=== PATIENT | female | born 2000 | race Caucasian/White ===

== ENCOUNTER 2023-05-27 12:30 | Outpatient (OUT) | payer OTHER, BC, SELFPAY ==
[2023-05-27 13:07] LABS: Basophils Percent Auto 0.3 % (0.2-2.0); Eosinophils Absolute Auto 0.1 10^3/uL (0.0-0.7); Eosinophils Percent Auto 1.3 % (0.9-7.0); Hematocrit 44.1 % (36.0-48.0); Hemoglobin 14.6 g/dL (12.0-16.0); Immature Granulocytes Abs Auto 0.02 10^3/uL (0.00-0.03); Immature Granulocytes Pct Auto 0.2 % (0.0-0.5); Lymphocytes Percent Auto 28.8 % (20.5-60.0); Mean Corpuscular HGB Conc 33.1 g/dL (29.9-35.2); Mean Corpuscular Hemoglobin 28.5 pg (26.7-34.0); Mean Platelet Volume 8.3 fL (9.5-13.5); Monocytes Absolute Auto 0.6 10^3/uL (0.3-0.8); Monocytes Percent Auto 5.8 % (1.7-12.0); Neutrophils Absolute Auto 6.5 10^3/uL (1.4-6.5); Neutrophils Percent Auto 63.6 % (43.0-75.0); Platelet Count 373 10^3/uL (150-450); Red Blood Count 5.13 10^6/uL (4.20-5.40); Red Cell Distribution Width 12.1 % (11.0-15.0); White Blood Count 10.2 10^3/uL (4.0-11.0)
[2023-05-27 13:33] LABS: Estimated Average Glucose 111 mg/dL; Glycohemoglobin A1C 5.5 % (4.5-6.2)
[2023-05-27 13:42] LABS: Free T4 1.08 ng/dL (0.76-1.46)
[2023-05-27 13:47] LABS: Alanine Aminotransferase 18 U/L (14-59); Albumin Globulin Ratio 0.9; Albumin Level 3.8 g/dL (3.4-5.0); Alkaline Phosphatase 58 U/L (46-116); Anion Gap 13.5; Aspartate Amino Transferase 36 U/L (15-37); Bilirubin Direct 0.1 mg/dL (0.0-0.2); Bilirubin Total 0.4 mg/dL (0.2-1.0); Calcium 9.3 mg/dL (8.5-10.1); Carbon Dioxide 27.2 mmol/L (21.0-32.0); Chloride 102 mmol/L (98-107); Chol HDL Ratio 4.8; Cholesterol 214 mg/dL (<=200); Estimated GFR (African America >60 (>=60); Estimated GFR (Non-African Ame >60 (>=60); Free T3 3.33 pg/mL (2.18-3.98); Globulin 4.1 g/dL; Glucose 77 mg/dL (74-106); HDL Cholesterol 45 mg/dL (40-60); Potassium 3.7 mmol/L (3.5-5.1); Sodium 139 mmol/L (136-145); Thyroid Stimulating Hormone 1.863 uIU/mL (0.358-3.740); Total Protein 7.9 g/dL (6.4-8.2); Triglycerides 185 mg/dL (<=150)
== END 2023-05-27 12:31 | disposition home or self-care (01) ==
LOC: LAB 12:37
PROVIDERS: PCP Family Medicine; Visit Provider Family Medicine
DX: Z00.00 Encounter for general adult medical examination without abnormal findings (principal)
CPT/HCPCS: 36415; 80048; 80061; 80076; 83036; 83525; 84439; 84443; 84481; 85025

== ENCOUNTER 2024-03-29 13:56 | Outpatient (OUT) | payer OTHER, BC, SELFPAY ==
--- OUTSIDE RECORDS SUMMARY | 2024-03-29 14:09 | XMS_ITS | CCD ---
Author Organization [facility] IT PROFESSIONAL [facility] Care Team Providers Care [employer] 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 Name Role Phone No, Physician Primary Care Provider Unavailabl e ROYCE VICK Referring Unavailable PROVIDER, UNKNOWN Attending Unavailable PROVIDER, UNKNOWN Admitting Unavailable No, Physician Primary Care Provider Unavailabl e NO, PHYSICIAN Primary Care Unavailable HUSSAIN PELAEZ Attending Unavailable NO, PHYSICIAN Primary Care Unavailable ALIVIA SLAUGHETR Attending Unavailable NO, PHYSICIAN Primary Care Unavailable IMANI STEPHENS Attending Unava ilable NO, PHYSICIAN Primary Care Unavailable MARLYS WINTER Attending Unavailable NO, PHYSICIAN Primary Care Unavailable MARLYS WINTER Attending Unavailable MARLYS WINTER Attending Unavailable NO, PHYSICIAN Primary Care Unavailable No, Physician Primary Care Provider Unavailabl e NO, PHYSICIAN Primary Care Unavailable MAILE, DHAVAL Referring Unavailable VASU ANDERSON Attending Unavailable MAILE, DHAVAL Admitting Unavailable NO, PHYSICIAN Primary Care Unavailable MAILE, DHAVAL Referring Unavailable VASU ANDERSON Attending Unavailable MAILE, DHAVAL Admitting Unavailable NO, PHYSICIAN Primary Care Unavailable MAILE, DHAVAL Referring Unavailable VASU ANDERSON Attending Unavailable MAILE, DHAVAL Admitting Unavailable NO, PHYSICIAN Primary Care Unavailable MAILE, DHAVAL Referring Unavailable VASU ANDERSON Attending Unavailable MAILE, DHAVAL Admitting Unavailable SYSTEM, PROVIDER NOT IN Admitting Unavaila ble ALAN AMIN Attending Unavailable NO, PHYSICIAN Primary Care Unavailable MAILE, DHAVAL Referring Unavailable VASU ANDERSON Attending Unavailable NO, PHYSICIAN Primary Care Unavailable MAILE, DHAVAL Admitting Unavailable MAILEDHAVAL FORREST Referring Unavailable SYSTEM, PROVIDER NOT IN Referring Unavaila ble SYSTEM, PROVIDER NOT IN Attending Unavaila ble NO, PHYSICIAN Primary Care Unavailable SYSTEM, PROVIDER NOT IN Referring Unavaila ble SYSTEM, PROVIDER NOT IN Attending Unavaila ble NO, PHYSICIAN Primary Care Unavailable SEEMA GIL Attending Unavailable NO, PHYSICIAN Primary Care Unavailable MAILE, DHAVAL Referring Unavailable MAILE, DHAVAL Admitting Unavailable Bethany, Radha Unavailable Dhaval Marx MD Primary Care Provider [phone] DHAVAL MARX Primary Care Physician [phone] Timmis, Zaihda H Admitting Unavailable Timmis, Zahida H Attending Unavailable Timmis, Zahida H Referring Unavailable FAWWAD, ARIZMENDI Admitting Unavailable FAWWAD, ARIZMENDI Attending Unavailable FAWWAD, ARIZMENDI Referring Unavailable Timmis, Zahida H Admitting Unavailable Timmis, Zahida H Attending Unavailable Timmis, Zahida H Referring Unavailable Dhaval Marx MD Primary Care Provider SHERI SPEARS Attending Unavailable RINKES, SHERI E Referring Unavailable NADEREKeyon, DHAVAL Attending Unavailable TIMMIS, ZAHIDA H Attending Unavailable NADERERDHAVAL Referring Unavailable FAWWAD, ARIZMENDI Attending Unavailable PEOPLES, LIZET T Referring Unavailable PEOPLES, LIZET Carnes Attending Unavailable NADERER, DHAVAL Attending Unavailable NADERER, DHAVAL Attending Unavailable MICHAEL, SHIMA S Attending Unavailable MICHAEL, SHIMA S Attending Unavailable MICHAEL, SHIMA S Attending Unavailable MICHAEL, SHIMA S Attending Unavailable NADERER, DHAVAL Attending Unavailable MICHAEL, SHIMA S Attending Unavailable TIMMIS, ZAHIDA H Attending Unavailable MICHAEL, SHIMA S Attending Unavailable MICHAEL, SHIMA S Attending Unavailable MICHAEL, SHIMA S Attending Unavailable MICHAEL, SHIMA S Attending Unavailable MICHAEL, SHIMA S Attending Unavailable MICHAEL, SHIMA S Attending Unavailable NADERER, DHAVAL Attending Unavailable Allergies Allergy Classification Reported Allergen(s) Allergy Type Date of Onset Reaction(s) Facility (20 sources) Amoxicillin; Translations: [AMOXICILLIN] Drug Allergy 08-01-19 [facility], Eruption of skin (disorder) [facility] Comment on above: all cillins (20 sources) cefdinir; Translations: [CEFDINIR] Drug Allergy 03-05-20 [facility] (20 sources) Sulfamethoxazole / Trimethoprim; Translations: [SULFAMETHOXAZOLE-T RIMETHOPRIM] Drug Allergy 03-05-20 [facility] (10 sources) Penicillins; Translations: [PENICILLINS] Propensity to adverse reactions to drug 04-10-20 [facility] (7 sources) Penicillins Propensity to adverse reactions to drug 04-10-20 21 [facility] (1 source) Penicillin Drug Allergy [facility] app[facility] Other (1 source) Penicillin G Drug Allergy [facility] Other (3 sources) Sulfamethoxazole / Trimethoprim; Translations: [SEPTRA] Drug Allergy [facility] (5 sources) Doxylamine Drug Allergy 11-08-19 23 [facility] Work Phone: (2 sources) Antibiotics 2 Drug allergy [facility] Comment on above: per notes (1 source) cefdinir; Translations: [Omnicef] Drug Allergy [facility] (1 source) Antibiotics; Translations: [Antibiotics] Propensity to adverse reactions (disorder) [facility] (4 sources) cefdinir Drug Allergy 04-02-20 15 [facility] Work Phone: (4 sources) Penicillins Drug Allergy 05-23-20 15 [facility] Medications Current Medications Medication Drug Class(es) Dates Sig (Normalized) Sig (Original) aluminum chloride 200 mg/ml topical solution (4 sources) Start: 05-25-2023 Drysol 20 % external solution APPLY TO HANDS AND FEET DAILY 0 05/25/2023 Active aspirin 81 mg delayed release oral tablet (13 sources) Platelet Aggregation Inhibitor, Nonsteroidal Anti-inflammatory Drug take 1 tablet by mouth twice daily aspirin 81 MG EC tablet Take 81 mg by mouth 2 (two) times a day . 0 Active azithromycin 250 mg oral tablet (18 sources) Macrolide Antimicrobial Start: 03-22-2023 take 2 tablets by mouth once daily, then take 1 tablet by mouth once daily azithromycin 250 mg tablet TAKE 2 TABLETS (500 MG) BY ORAL ROUTE ONCE DAILY FOR 1 DAY THEN 1 TABLET (250 MG) BY ORAL ROUTE ONCE DAILY FOR 4 DAYS 03/22/2023 active Start: 04-10-2021 End: 11-01-2021 azithromycin (ZITHROMAX) 250 MG tablet Indications: Right non-suppurative otitis media Take 2 tablets orally today then 1 tablet once a day for 4 days . 6 tablet 0 11/01/2021 Active Start: 06-20-2010 take 200 mg by mouth once daily Zithromax 200 mg/5 mL oral liquid 200 mg = 5 mL, Oral, Daily, Refills(s) 0 Start Date: 06/20/10 Status: Ordered End: 04-10-2021 take 1 tablet by mouth once daily azithromycin (ZITHROMAX) 500 MG tablet Take 500 mg by mouth daily . 0 04/10/2021 Discontinued brompheniramine maleate 0.4 mg/ml / dextromethorphan hydrobromide 2 mg/ml / pseudoephedrine hydrochloride 6 mg/ml oral solution (13 sources) alpha-Adrenergic Agonist, Uncompetitive U-bxakzb-W-aspartate Receptor Antagonist, Sigma-1 Agonist Start: 05-06-2021 take 10 mL by mouth four times daily as needed accfvfpcjhernop-akymqhqJHFAzsil-MQ 2-30-10 mg/5 mL syrup Indications: Upper respiratory tract infection, unspecified type Take 10 mL by mouth 4 (four) times a day as needed . 120 mL 0 05/06/2021 Active Start: 04-10-2021 End: 04-20-2021 take 10 mL by mouth four times daily as needed mhukcockzxhouet-tyrshgmRBAGnmqe-AY 2-30- 10 mg/5 mL syrup Indications: Upper respiratory tract infection, unspecified type Take 10 mL by mouth 4 (four) times a day as needed . 200 mL 0 04/10/2021 04/20/2021 cephalexin 500 mg oral capsule (2 sources) Cephalosporin Antibacterial Start: 11-08-2022 End: 11-13-2022 take 1 capsule by mouth every twelve hours cephALEXin 500 MG capsule Take 1 capsule by mouth every 12 hours for 5 days. 10 capsule 0 11/08/2022 11/13/2022 Active Start: 11-08-2022 End: 11-08-2022 cephALEXin (KEFLEX) capsule 500 mg clarithromycin 500 mg oral tablet (1 source) Macrolide Antimicrobial Start: 07-14-2022 take 1 tablet by mouth every twelve hours Clarithromycin 500 MG 1 tablet Orally every 12 hrs for 10 day(s) Jul, Active dextromethorphan hydrobromide 15 mg / guaiFENesin 400 mg / pseudoephedrine hydrochloride 60 mg oral tablet (1 source) alpha-Adrenergic Agonist, Uncompetitive H-ayisnt-D-asparta te Receptor Antagonist, Sigma-1 Agonist Start: 03-22-2023 take 1 tablet by mouth every six hours as needed Capmist DM 60 mg-15 mg-400 mg tablet Take 1 tablet every 6 hours by oral route as needed. 03/22/2023 active Ethinyl Estradiol / norgestimate (18 sources) Progestin, Estrogen Start: 08-05-2023 End: 08-17-2023 take 1 tablet by mouth in the morning norgestimate-ethiny l estradiol (Ortho Tri-Cyclen LO) 0.18/0.215/0.25 MG-25 MCG tablet Indications: Encounter for surveillance of contraceptive pills Take 1 tablet by mouth in the morning. 84 tablet 3 08/05/2023 08/17/2023 Discontinued Start: 08-05-2023 End: 08-04-2024 take 1 tablet by mouth in the morning norgestimate-ethinyl estradiol (Ortho Tri-Cyclen LO) 0.18/0.215/0.25 MG-25 MCG tablet Indications: Encounter for surveillance of contraceptive pills Take 1 tablet by mouth in the morning. 84 tablet 3 08/05/2023 08/04/2024 Active Start: 04-21-2023 Sprintec oral tablet 1 tab(s), Oral, Daily, 28 tab(s), Refill(s) 0, control/menstrual regulation Start Date: 04/21/23 Status: Ordered take 1 tablet by [facility] once daily norgestimate-ethinyl estradioL 0.25-35 mg-mcg per tablet Take 1 tablet by mouth daily . 0 Active fluocinonide 1 mg/ml topical cream (7 sources) Corticosteroid Start: 03-18-2022 fluocinonide 0 .1 % Crea Apply 1 application topically 3 (three) times a day as needed . 30 g 1 03/18/2022 Active fluticasone propionate 0.05 mg/actuat metered dose nasal spray (19 sources) Corticosteroid Start: 07-14-2022 take 2 spray(s) nasal route once daily Fluticasone Propionate 50 MCG/ACT 2 sprays Nasally Once a day for 14 day(s) Jul, Active Start: 09-06-2021 End: 09-20-2021 take 2 spray(s) nasal route once daily fluticasone propionate (FLONASE) 50 mcg/actuation nasal spray Indications: Recurrent acute suppurative otitis media of right ear without spontaneous rupture of tympanic membrane Instill 2 (two) sprays into each nostril daily for 14 days . 16 g 0 09/06/2021 Active Start: 03-05-2021 End: 09-06-2021 take 1 spray(s) nasal route twice daily fluticasone propionate (FLONASE) 50 mcg/actuation nasal spray Indications: Seasonal allergies Instill 1 (one) spray into each nostril 2 (two) times a day . 16 g 0 03/05/2021 09/06/2021 Discontinued (Surgery) take 2 spray(s) nasa l route in the morning fluticasone (Flonase Allergy Relief) 50 MCG/ACT nasal spray Administer 2 sprays into each nostril in the morning. Shake gently. Before first use, prime pump. After use, clean tip and replace cap.. 0 Active medidate (1 source) Start: 06-20-2010 medidate medidate, Oral Start Date: 06/20/10 Status: Ordered methylPREDNISolone (13 sources) Corticosteroid Start: 04-10-2021 methylPREDNISolone (MEDROL DOSEPACK) 4 mg tablet Indications: Rib pain , Upper respiratory tract infection, unspecified type follow package directions . 21 tablet 0 04/10/2021 Active Norgestimate-Eth Estradiol (SPRINTEC 28 PO) (1 source) Norgestimate-Eth Estradiol (SPRINTEC 28 PO) Take by mouth. 0 Active ofloxacin 3 mg/ml otic solution (1 source) Quinolone Antimicrobial Start: 03-05-2021 End: 03-12-2021 ofloxacin (FLOXIN) 0.3 % otic solution Indications: Recurrent acute suppurative otitis media of right ear without spontaneous rupture of tympanic membrane Administer 5 (five) drops to the right ear daily for 7 days . 5 mL 0 03/05/2021 03/12/2021 Active phentermine hydrochloride 37.5 mg oral tablet (5 sources) Sympathomimetic Amine Anorectic Start: 07-22-2023 End: 09-23-2023 take 1 tablet by mouth before mealtime phentermine (Adipex-P) 37.5 MG tablet Indications: Obesity (BMI 30-39.9) Take 1 tablet (37.5 mg) by mouth in the morning. Take before meals. 30 tablet 0 08/24/2023 09/23/2023 Active predniSONE 20 mg oral tablet (2 sources) Start: 07-14-2022 take 1 tablet by mouth every twelve hours predniSONE 20 MG 1 tablet Orally 2 times a day for 5 day(s) Jul, Active Start: 03-18-2022 End: 03-25-2022 take 2 tablets by mouth once daily predniSONE (DELTASONE) 20 MG tablet Take 2 (two) tablets (40 mg total) by mouth daily for 7 days . 14 tablet 0 03/18/2022 03/25/2022 Active Sprintec (28) (1 source) Sprintec (28) ac tive Sprintec 28 (1 source) Sprintec 28 Acti ve Completed/Discontinued Medications Medication Drug Class(es) Dates Sig (Normalized) Sig (Original) acetaminophen 325 mg / HYDROcodone bitartrate 5 mg oral tablet (1 source) Opioid Agonist Start: 11-08-2022 End: 11-08-2022 hydroCODone-acetamin ophen (NORCO) 5-325 MG per tablet 1 tablet cyclobenzaprine hydrochloride 10 mg oral tablet (1 source) Muscle Relaxant Start: 04-10-2021 End: 04-20-2021 take 1 tablet by mouth three times daily as needed for muscle spasms cyclobenzaprine (FLEXERIL) 10 MG tablet Indications: Rib pain Take 1 (one) tablet (10 mg total) by mouth 3 (three) times a day as needed for muscle spasms . 30 tablet 0 04/10/2021 04/20/2021 dexamethasone phosphate 10 mg/ml injectable solution (3 sources) Corticosteroid Start: 11-15-2021 End: 11-15-2021 dexamethasone (DECADRON) injection 10 mg Start: 11-15-2021 End: 11-15-2021 dexamethasone (DECADRON) inj ection 10 mg Start: 11-15-2021 End: 11-15-2021 dexamethasone (DECADRON) inj ection 10 mg Problems Active Problems Problem Classification Problem Date Documented Date Episodic/Chronic Allergic reactions (6 sources) Contact dermatitis due to poison christiana; Translations: [Allergic contact dermatitis due to plants, except food] Onset: 07-01-2023 Episodic Attention-deficit, conduct, and disruptive behavior disorders (2 sources) Attention deficit hyperactivity disorder 06-20-2010 Chronic Disorders usually diagnosed in infancy, childhood, or adolescence (4 sources) Attention deficit hyperactivity disorder, predominantly inattentive type; Translations: [Other specified behavioral and emotional disorders with onset usually occurring in childhood and adolescence] Onset: 07-01-2023 07-01-2023 Chronic Immunizations and screening for infectious disease (3 sources) Disorder excluded; Translations: [Encounter for observation for suspected exposure to other biological agents ruled out] Episodic Other ear and sense organ disorders (4 sources) Chronic otitis externa; Translations: [Other otitis externa, right ear] Onset: 12-23-2022 12-23-2022 Chronic Other ear and sense organ disorders (4 sources) Chronic right myringitis; Translations: [Chronic myringitis, right ear] Onset: 12-23-2022 12-23-2022 Chronic Other ear and sense organ disorders (4 sources) Hearing loss of right ear; Translations: [Unspecified hearing loss, right ear] Onset: 12-23-2022 12-23-2022 Chronic Other lower respiratory disease (1 source) Cough; Translations: [Cough] Episodic Other lower respiratory disease (1 source) Rib pain; Translations: [Pleurodynia] Episodic Other nervous system disorders (2 sources) Other chronic pain; Translations: [Other chronic pain] Onset: 05-19-2022 Chronic Other nervous system disorders (1 source) Loss of taste; Translations: [Parageusia] Episodic Other nutritional; endocrine; and metabolic disorders (7 sources) Body mass index 30+ - obesity; Translations: [Obesity, unspecified] Onset: 07-01-2023 07-01-2023 Chronic Spondylosis; intervertebral disc disorders; other back problems (4 sources) Low back pain; Translations: [Low back pain, unspecified back pain laterality, unspecified chronicity, unspecified whether sciatica present] Onset: 05-01-2022 Episodic Unclassified (1 source) Low back pain, unspecified; Translations: [Low back pain, unspecified] Onset: 05-19-2022 Urinary tract infections (1 source) Acute cystitis; Translations: [Acute cystitis without hematuria] Episodic Past or Other Problems Problem Classification Problem Date Documented Da te Episodic/Chronic Adjustment disorders (4 sources) Adjustment disorder with physical complaints; Translations: [Adjustment disorder with other symptoms] Onset: 06-11-2015 Resolved: 12-23-2022 12-23-2022 Chronic Blindness and vision defects (4 sources) Diplopia; Translations: [Diplopia] Onset: 05-23-2015 Resolved: 12-23-2022 12-23-2022 Episodic Conditions associated with dizziness or vertigo (4 sources) Dysfunction of vestibular system; Translations: [Unspecified disorder of vestibular function, unspecified ear] Onset: 04-02-2015 Resolved: 12-23-2022 12-23-2022 Episodic Gastrointestinal hemorrhage (4 sources) Blood-tinged feces; Translations: [Melena] Onset: 12-12-2015 Resolved: 12-23-2022 12-23-2022 Episodic Headache; including migraine (4 sources) Acute posttraumatic headache; Translations: [Acute post-traumatic headache, not intractable] Onset: 04-02-2015 Resolved: 12-23-2022 12-23-2022 Episodic Intracranial injury (8 sources) Concussion injury of body structure; Translations: [Concussion] Onset: 04-02-2015 Resolved: 12-23-2022 12-23-2022 Episodic Joint disorders and dislocations; trauma-related (4 sources) Derangement of right knee; Translations: [Unspecified internal derangement of right knee] Onset: 12-23-2022 Resolved: 12-23-2022 12-23-2022 Chronic Menstrual disorders (4 sources) Irregular periods; Translations: [Irregular menstruation, unspecified] Onset: 12-23-2022 Resolved: 12-23-2022 12-23-2022 Chronic Other eye disorders (4 sources) Convergence insufficiency; Translations: [Convergence insufficiency] Onset: 04-02-2015 Resolved: 12-23-2022 12-23-2022 Episodic Other female genital disorders (4 sources) Abnormal uterine bleeding; Translations: [Abnormal uterine and vaginal bleeding, unspecified] Onset: 12-23-2022 Resolved: 12-23-2022 12-23-2022 Chronic Other gastrointestinal disorders (4 sources) Slow transit constipation; Translations: [Slow transit constipation] Onset: 12-12-2015 Resolved: 12-23-2022 12-23-2022 Episodic Other non-traumatic joint disorders (18 sources) Pain in right knee; Translations: [Pain in joint, lower leg] Onset: 05-19-2022 Resolved: 12-23-2022 Episodic Other screening for suspected conditions (not mental disorders or infectious disease) (4 sources) Abnormal cytology findings; Translations: [Abnormal cytological findings in specimens from other organs, systems and tissues] Onset: 12-23-2022 Resolved: 12-23-2022 12-23-2022 Episodic Other upper respiratory infections (5 sources) Upper respiratory infection; Translations: [Acute upper respiratory infection, unspecified] Onset: 03-22-2023 Resolved: 03-22-2023 Episodic Otitis media and related conditions (9 sources) Acute suppurative otitis media without spontaneous rupture of ear drum; Translations: [Acute suppurative otitis media without spontaneous rupture of ear drum, recurrent, right ear] Onset: 02-16-2023 Episodic Sprains and strains (4 sources) Strain of neck muscle; Translations: [Strain of muscle, fascia and tendon at neck level, initial encounter] Onset: 04-02-2015 Resolved: 12-23-2022 12-23-2022 Episodic Unclassified (1 source) Low back pain, unspecified; Translations: [Low back pain, unspecified] Onset: 05-19-2022 Viral infection (18 sources) Disease caused by 2019-nCoV; Translations: [COVID-19] Onset: 03-08-2021 Resolved: 12-23-2022 Episodic Results Test Name Value Interpretation Reference Range Facility IntraOperative Documentson 1 IntraOperative Documents [id number]# 1.00TIFF [facility] Consent for Anesthesiaon Consent for Anesthesia [id number]# 1.00TIFF [facility] Consent for Anesthesia [id number]# 1.00TIFF [facility] Discharge Instructionson Discharge Instructions [id number]# 1.00TIFF [facility] IntraOperative Documentson 1 IntraOperative Documents [id number]# 1.00TIFF [facility] Physician Orderon 04-24-2023 Physician Order [id number]# 1.00TIFF [facility] Preoperative Documentson Preoperative Documents [id number]# 1.00TIFF [facility] Progress Note-Physicianon Progress Note-Physician Patient: ANUM CLOUD Age: 22 years Sex: Female : 2000 Associated Diagnoses: None Author: MD Bah Ahmad F Postoperative Information Postoperative disposition: Postoperative disposition: To PACU. Optimetrix number: Optimetrix number [id number]. Anesthetic utilized: General. Health Status Allergies: Allergic Reactions (Selected) Severity Not Documented Amoxicillin- Rash. Antibiotics- No reactions were documented. Omnicef- Unknown. Penicillins- Hives. Septra- Hives. Physical Examination VS/Measurements Pain Assessment: Controlled. General: Awake, Alert, Appropriate. Respiratory: Adequate air exchange. Cardiovascular: Stable, Normal peripheral perfusion. Neurological: Normal sensory function, Normal motor function. Assessment Anesthetic outcome No anesthetic complications noted. Adequate pain relief. able to void without difficulty, able to ambulate with assist, tolerating PO intake, no N/V. Review / Management Condition: Stable. Plan Transfer/Discharge: Transfer/Discharge Discharge when meets criteria ( To home ). [facility] Comment on above: Result Comment: Elec tronically Signed By: MD Bah Ahmad F\.br\Date and Time Signed: 04/24/23 14:49 EDT Progress Note-Physician Patient: ANUM CLOUD Age: 22 years Sex: Female : 2000 Associated Diagnoses: None Author: MD Bah Ahmad F Preoperative Information Time patient last ate or drank:=== (npo 8 hours) Anesthesia history: Patient history: No prior anesthesia problems. Re-evaluation prior to induction: Completed, Initial evaluation reviewed. Review of Systems Respiratory: No shortness of breath. Cardiovascular: No chest pain. Hematology/Lymphatics : No bruising tendency, No bleeding tendency. Health Status Allergies: Allergic Reactions (All) Severity Not Documented Amoxicillin- Rash. Antibiotics- No reactions were documented. Omnicef- Unknown. Penicillins- Hives. Septra- Hives. Current medications: (Selected) Documented Medications Documented Sprintec oral tablet: 1 tab(s), Oral, Daily, 28 tab(s), Refill(s) 0, control/menstrual regulation Problem list: All Problems Resolved: ADHD - Attention deficit disorder with hyperactivity / SNOMED CT [id number] Histories Past Medical History: Resolved ADHD - Attention deficit disorder with hyperactivity ([id number]): Resolved. Family History: No family history items have been selected or recorded. Procedure history: Myringotomy and insertion of tympanic ventilation tube ([id number]) on 04/23/2023 at 22 Years. Myringotomy and insertion of tympanic ventilation tube ([id number]). Myringotomy and insertion of tympanic ventilation tube ([id number]). Myringotomy and insertion of tympanic ventilation tube ([id number]). Tonsillectomy and adenoidectomy ([id number]). Social History Social & Psychosocial Habits Alcohol 04/21/2023 Risk Assessment: Denies Alcohol Use Substance Abuse 04/21/2023 Risk Assessment: Denies Substance Abuse Tobacco 04/21/2023 Risk Assessment: Denies Tobacco Use . Physical Examination Please see preop flow sheet Airway: Mallampati classification: II (soft palate, fauces, uvula visible). Respiratory: Lungs are clear to auscultation. Cardiovascular: Normal rate, Regular rhythm. Neurologic: Alert. Review / Management Results review Interpretation of Outside Results Chest x-ray results Radiology results ECG interpretation Condition Plan [place] [employer] (ASA) physical status classification: Class II. Anesthetic Preoperative Plan Anesthesia: General. . Anesthetic plan, risks, benefits, and alternatives discussed with the patient and/or family. Risks discussed: nausea, vomiting, headache, sore throat, dental injury, serious complications. Patient verbalized understanding. Communication: face to face with patient 5 minutes. Edmundo [facility] Comment on above: Result Comment: Elec tronically Signed By: MD Olvin, Monster Szymanski\.court\Date and Time Signed: 04/24/23 14:47 EDT B hCG [place] 04-23-2023 Beta hCG Ql Negative Normal [facility] Comment on above: Performed By: #### 2 [id number] #### [facility] [address] [place] [address] Consent for Procedure/Surger yon 04-23-2023 Consent for Procedure/Surgery [id number]# 1.00TIFF Normal [facility] Consent for Treatmenton 04-12 Consent for Treatment [id number] .00TIFF Normal [facility] Discharge Instructionson Discharge Instructions ANUM CLOUD :2000 Visit Date:04/23/2023 Inpatient Discharge Instructions Your Care Team Admitting Physician - Zahida Jacobs MD Referring Physician - Zahida Jacobs MD Reason for Your Visit RIGHT EUSTACHIAN TUBE DYSFUNCTION This Is Your Medications List ethinyl estradiol-norgestimat e (Sprintec oral tablet) Procedure History Myringotomy and insertion of tympanic ventilation tube, Myringotomy and insertion of tympanic ventilation tube, Myringotomy and insertion of tympanic ventilation tube, Tonsillectomy and adenoidectomy. What to do next Instructions From Your Doctor Event Name Event Result Discharge Instructions Freetext Keep right ear dryCiprodex 4 drops in right ear 3 times daily for 5 days Discharge Activity Expect mild pain, Expect minimal amount of drainage and/or bleeding, Activity as tolerated Discharge Diet(s) Regular Call Your Doctor For Redness, swelling, or pus at operative site Discharge Instructions Discharge Instructions New Follow Up Appointments after Discharge Follow Up with Zahida Jacobs When: Comments: One month Medications What How Much When Instructions Next Dose Unchanged ethinyl estradiol-norgestimat e (Sprintec oral tablet) 1 Tablets By Mouth Every day Allergies Antibiotics Omnicef (Unknown) Septra (Hives) amoxicillin (Rash) penicillins (Hives) Problems Historical - Any problem that you are no longer receiving treatment for. ADHD - Attention deficit disorder with hyperactivity Education Materials Common Emergency Awareness Tips IS IT A STROKE? Act FAST and Check for these signs: FACE Does the face look uneven? ARM Does one arm drift down? SPEECH Does their speech sound strange? TIME Call at any sign of stroke Heart Attack Signs Chest discomfort: Most heart attacks involve discomfort in the center of the chest and lasts more than a few minutes, or goes away and comes back. It can feel like uncomfortable pressure, squeezing, fullness or pain. Discomfort in upper body: Symptoms can include pain or discomfort in one or both arms, back, neck, jaw or stomach. Shortness of breath: With or without discomfort. Other signs: Breaking out in a cold sweat, nausea, or lightheaded. Remember, MINUTES DO MATTER. If you experience any of these heart attack warning signs, call to get immediate medical attention! Patient Survey You may receive a survey in the mail asking you about your stay with us. We want to hear from you, please share your experience with us by completing your survey. Thank you for choosing [facility]. Patient Portal You may access all of your results and other medical record information on our secure patient portal. If you are not signed up for this yet, please contact [employer] at [phone] to get signed up today. Patient Name: ANUM Binta I have received this information and my questions have been answered. Patient/Representativ e Name: Patient/Representativ e Signature: Relationship to Patient: Witness Name/Signature: Date: Normal [facility] Comment on above: Result Comment: Elec tronically Signed By: Luis SIMS, Ishmael Anderson\.br\Date and Time Signed: 04/23/23 10:40 EDT H&P Updateon 04-23-2023 H&P Update [id number] 1.00TIFF Normal [facility] Inpatient Patient Summaryon 04-23-2023 Inpatient Patient Summary [place] [address] [facility] Clinical Discharge Instructions PERSON INFORMATION Name: ANUM CLOUD Binta PHYSICIANS Admitting Physician: Zahida Jacobs MD Attending Physician: Zahida Jacobs MD PCP: FRANCISCO J BROWN, DHAVAL Discharge Diagnosis: ETD (eustachian tube dysfunction) Comment: PATIENT EDUCATION INFORMATION Instructions: Post Op Patient Instructions - FT (CUSTOM) Medication Leaflets: Follow up: With: Address: When: Zahida Jacobs Comments: One month MEDICATION LIST Medications to Continue with No Changes Other Medications ethinyl estradiol-norgestimat e (Sprintec oral tablet) 1 Tablets By Mouth every day. Comment: Normal [facility] Main OR Intraoperative Recor don 04-23-2023 Main OR Intraoperative Record IntraOp Document Type FT Summary Primary Physician: Zahida Jacobs MD Finalized Date/Time: 04/23/23 13:49:49 Pt. Name: ANUM CLOUD /Sex: 2000 Female Med Rec #: [id number] Physician: Riley BROWN, Zahida Schmitt Financial #: [id number] Pt. Type: A Room/Bed: [facility] Admit/Disch: 04/23/23 07:27:05 - 04/23/23 12:00:00 Institution: Case Times FT Entry 1 Patient Times In Room 04/23/23 09:41:00 Out Room 04/23/23 09:57:00 Procedure Times Start 04/23/23 09:50:00 Stop 04/23/23 09:53:00 Anesthesia Times Start 04/23/23 09:41:00 Stop 04/23/23 09:57:00 Last Modified By: Luisa SIMS, Rocky Galicia 04/23/23 10:02:36 General Comments: 04/23/23 Chart opened to review and send charges [facility]FA Case Attendance FT Entry 1 Entry 2 Entry 3 Case Attendee Rosanna MCDONALD, SCREEN PRINTING SUPERVISOR, Queen Riley BROWN, Zahida Moran RN, Rocky Lockett Role Performed SCREEN PRINTING SUPERVISOR Surgeon - Primary Harvest Field Ticketer - Primary Time In 04/23/23 09:41:00 04/23/23 09:47:00 04/23/23 09:41:00 Time Out 04/23/23 09:57:00 04/23/23 09:54:00 04/23/23 09:57:00 Procedure MYRINGOTOMY W/ MYRINGOTOMY W/ MYRINGOTOMY W/ INSERTION OF INSERTION OF INSERTION OF TUBES(Right) TUBES(Right) TUBES(Right) Comments , anesthesia supervisor quality control Last Modified By: Mary Gould CST, RN, Rocky Moran RN, Rocky Galicia 04/23/23 13:48:19 04/23/23 10:02:37 04/23/23 10:02:37 Entry 4 Entry 5 Case Attendee Freedom Raines [place] A Role Performed Harvest Field Ticketer - Primary Scrub - Primary Time In 04/23/23 09:41:00 04/23/23 09:41:00 Time Out 04/23/23 09:57:00 04/23/23 09:57:00 Procedure MYRINGOTOMY W/ MYRINGOTOMY W/ INSERTION OF INSERTION OF TUBES(Right) TUBES(Right) Comments Last Modified By: Rocky Moran RN, RN, Andrea L 04/23/23 10:02:37 04/23/23 10:02:37 Perioperative Protocols FT Pre-Care Text: Implements protective measures prior to operative or invasive procedure, confirms identity before the operative or invasive procedure, verifies operative procedure, surgical site, and laterality Entry 1 Procedure(s) MYRINGOTOMY W/ Patient Identity Birthday, ID Band INSERTION OF Verified (select at Check, Patient TUBES(Right) least 2): Participation Consents / H and P Anesthesia Consent, Operative Site Present Verified HandP, Surgery/Procedure Marking Verified Consent Surgical Site Yes Laterality Verified Yes Verified Procedure Verified Yes Correct Patient Yes Position Verified Availability Equipment, Medication Prep Dry n/a Verified (If Applicable) PreOp Antibiotic No Time Out Rosanna MCDONALD, MARQUISE, Queen Dell Lockett, Zahida Jacobs MD, Luisa SIMS, Olu Yang Terry T, [place], [place] A Time Out Complete 04/23/23 09:50:00 Outcomes Met? Yes Last Modified By: Rocky Moran RN 04/23/23 09:50:23 Post-Care Text: The patient is free from signs and symptoms of injury caused by extraneous objects Allergy Information FT Pre-Care Text: Verifies allergies Entry 1 Allergies Reviewed? Yes Allergies Reviewed Self/Patient With Outcomes Met? Yes Last Modified By: Rocky Moran RN 04/23/23 08:15:20 Post-Care Text: The patient received appropriate medication(s) safely administered during the perioperative period Surgical Procedures FT Entry 1 Procedure Description Procedure MYRINGOTOMY W/ Modifiers Right INSERTION OF TUBES Surgeon Description RIGHT MYRINGOTOMY WITH T-TUBE Primary Procedure Yes Primary Surgeon Zahida Jacobs MD Start 04/23/23 09:50:00 Stop 04/23/23 09:53:00 Anesthesia Type General Surgical Service ENT Wound Class 2 - Clean-Contaminated Last Modified By: Rocky Moran RN 04/23/23 10:02:45 General Case Data FT Pre-Care Text: Classifies surgical wound, implements aseptic technique, initiates traffic control Entry 1 Case Information OR OR 2 FT Case Level Level 2 Wound Class 2 - Clean-Contaminated Specialty ENT ASA Class 2 Preop Diagnosis RIGHT EUSTACHIAN TUBE Postop Same As Preop Yes DYSFUNCTION Postop Diagnosis RIGHT EUSTACHIAN TUBE Outcomes Met? Yes DYSFUNCTION Last Modified By: Mary Gould CST 04/23/23 13:49:44 Post-Care Text: The patient is free from signs and symptoms of infection Skin Assessment (Pre Procedure) FT Pre-Care Text: Implements protective measures to prevent skin/ tissue injury due to thermal or mechanical sources Evaluates for signs and symptoms of physical injury to skin and tissue Entry 1 Skin Integrity Intact, Tappen, Warm, and Skin Abnormality No Dry Outcomes Met? Yes Last Modified By: Rocky Moran RN 04/23/23 09:41:22 Post-Care Text: The patient is free from signs and symptoms of injury caused by extraneous objects Patient Positioning FT Pre-Care Text: Identifies physical alterations that require additional precautions for procedure-specific positioning, verifies presence of prosthetics or corrective devices, positions the patient, evaluates the patient for signs and symptoms of (more content not included)... Normal [facility] Main OR PACU I Recordon 04-12 Main OR PACU I Record PACU Phase I Docum ent Type FT Summary Primary Physician: Zahida Jacobs MD Finalized Date/Time: 04/23/23 11:03:02 Pt. Name: ANUM CLOUD/Sex: 2000 Female Med Rec #: [id number] Physician: Zahida Jacobs MD Financial #: [id number] Pt. Type: A Room/Bed: [place] [address] Admit/Disch: 04/23/23 07:27:05 - Institution: Case Times PACU I FT Pre-Care Text: Identifies barriers to communication and implements measures to provide psychological support Develops individualized plan of care, and ensures continuity of care Maintains patient's dignity and privacy, and maintains patient confidentiality Identifies and reports philosophical, cultural, and spiritual beliefs and values Identifies individual values and wishes concerning care Implements aseptic technique, and administers prescribed antibiotic therapy and immunizing agents as ordered Evaluates postoperative tissue perfusion Implements thermoregulation measures, and monitors body temperature Evaluates postoperative respiratory status Evaluates postoperative cardiac status Evaluates postoperative neurological status Assesses pain control, collaborated in initiating patient-controlled analgesia and implements alternative methods of pain control Verifies allergies, administers prescribed medications and solutions, evaluates response to medications Entry 1 In PACU I 04/23/23 09:58:00 Discharge from PACU 04/23/23 10:53:00 I Outcomes Met? Yes Last Modified By: Rose Lopez RN 04/23/23 11:02:40 Post-Care Text: The patient demonstrates knowledge of the expected response to the operative or invasive procedure The patient's care is consistent with the individualized perioperative plan of care The patient's right to privacy is maintained The patient's value system, lifestyle, ethnicity, and culture are considered, respected, and incorporated into the perioperative plan of care The patient participates in decisions affecting his or her perioperative plan of care The patient is free from signs and symptoms of infection The patient has wound/tissue perfusion consistent with or improved from baseline levels established preoperatively The patient is at or returning to normothermia at the conclusion of the immediate postoperative period The patient's respiratory function is consistent with or improved from baseline levels established preoperatively The patient's cardiovascular status is consistent with or improved from baseline levels established preoperatively The patient's cardiovascular status is consistent with or improved from baseline levels established preoperatively The patient demonstrates and/or reports adequate pain control throughout the perioperative period The patient received appropriate medication(s), safely administered during the perioperative period Acuity Level PACU I FT Entry 1 Start Time 04/23/23 09:58:00 Stop Time 04/23/23 10:53:00 Acuity Level Acuity Level I Last Modified By: Rose Lopez RN 04/23/23 11:02:56 Finalized By: Rose Lopez RN Document Signatures Signed By: Rose Lopez RN 04/23/23 11:03 Normal [facility] Main OR PACU II Recordon Main OR PACU II Record PACU Phase II Document Type FT Summary Primary Physician: Zahida Jacobs MD Finalized Date/Time: 04/23/23 13:01:42 Pt. Name: ANUM CLOUD/Sex: 2000 Female Med Rec #: [id number] Physician: Zahida Jacobs MD Financial #: [id number] Pt. Type: A Room/Bed: [facility] Admit/Disch: 04/23/23 07:27:05 - 04/23/23 12:00:00 Institution: Case Times PACU II FT Pre-Care Text: Identifies barriers to communication and implements measures to provide psychological support and determines knowledge level Develops individualized plan of care, and ensures continuity of care Maintains patient's dignity and privacy, and maintains patient confidentiality Identifies and reports philosophical, cultural, and spiritual beliefs and values Identifies individual values and wishes concerning care administers prescribed antibiotic therapy and immunizing agents as ordered, Evaluates postoperative tissue perfusion Implements thermoregulation measures, and monitors body temperature Evaluates postoperative respiratory status Evaluates postoperative cardiac status Evaluates postoperative neurological status Assesses pain control, collaborated in initiating patient-controlled analgesia and implements alternative methods of pain control Verifies allergies, administers prescribed medications and solutions, evaluates response to medications Entry 1 In PACU II 04/23/23 10:55:00 Discharge from PACU 04/23/23 12:00:00 II Outcomes Met? Yes Last Modified By: Ishmael Smith RN 04/23/23 13:01:41 Post-Care Text: The patient demonstrates knowledge of the expected response to the operative or invasive procedure The patient's care is consistent with the individualized perioperative plan of care The patient's right to privacy is maintained The patient's value system, lifestyle, ethnicity, and culture are considered, respected, and incorporated into the perioperative plan of care The patient participates in decisions affecting his or her perioperative plan of care. The patient is free from signs and symptoms of infection The patient has wound/tissue perfusion consistent with or improved from baseline levels established preoperatively The patient is at or returning to normothermia at the conclusion of the immediate postoperative period The patient's respiratory function is consistent with or improved from baseline levels established preoperatively The patient's cardiovascular status is consistent with or improved from baseline levels established preoperatively The patient's neurological status is consistent with or improved from baseline levels established preoperatively The patient demonstrates and/or reports adequate pain control throughout the perioperative period The patient received appropriate medication(s), safely administered during the perioperative period Finalized By: Ishmael Smith RN Document Signatures Signed By: Ishmael Smith RN 04/23/23 13:01 [facility] Main OR Preoperative Recordo n 04-23-2023 Main OR Preoperative Record PreOp Document Type FT Summary Primary Physician: Zahida Jacobs MD Finalized Date/Time: 04/23/23 09:41:43 Pt. Name: ANUM CLOUD /Sex: 2000 Female Med Rec #: [id number] Physician: Zahida Jacobs MD Financial #: [id number] Pt. Type: A Room/Bed: [facility] Admit/Disch: 04/23/23 07:27:05 - Institution: Case Times PreOp FT Pre-Care Text: Verifies consent for planned procedure, identifies individual values and wishes concerning care, includes family members in perioperative teaching Entry 1 Patient Times. In Pre Surgery 04/23/23 07:35:00 Out Pre Surgery 04/23/23 09:39:00 Outcomes Met? Yes Last Modified By: Rocky Moran RN 04/23/23 09:41:41 Post-Care Text: The patient participates in decisions affecting his or her perioperative plan of care Finalized By: Rocky Moran RN Document Signatures Signed By: Rocky Moran RN 04/23/23 09:41 Normal [facility] Monitor Recordon 04-23-2023 Monitor Record [id number]# 1.00TIFF Normal [facility] Operative Reporton Operative Report SURGERY DATE: 04/23/2023 PREOPERATIVE DIAGNOSIS: Right eustachian tube dysfunction POSTOPERATIVE DIAGNOSIS: Right eustachian tube dysfunction OPERATION: Right myringotomy and tube with microdissection placement of a T tube ANESTHESIA: General LMA COMPLICATIONS: None FINDINGS: Right dry middle ear. INDICATIONS: This 22-year-old woman presented with symptomatic right eustachian tube dysfunction unresponsive to aggressive medical management. PROCEDURE: The patient identified in the Holding Area and taken back to the Operating Room where she was placed in a supine position. After the induction of general anesthesia, the right ear was approached with the otomicroscope. An anterior radial myringotomy was performed and an Calvillo tympanostomy tube was folded, inserted through the myringotomy and opened in the middle ear using microdissection. The patient was then awakened and taken to the Recovery Room in good condition. Zahida Jacobs Jr., M.D. ls Dictated: 04/23/2023 [id number] Transcribed: 04/23/2023 cc:Dhaval Marx M.D. [facility] Comment on above: Result Comment: Elec tronically Signed By: Zahida Jacobs MD\.br\Date and Time Signed: 04/23/23 10:48 EDT Outpatient Surgery Discharge Instructionon 04-23-2023 Outpatient Surgery Discharge Instruction [place] [id number] Patient Discharge Instructions PERSON INFORMATION Name: ANUM CLOUD Date of : 2000 Current Date: 04/23/2023 10:39:10 PHYSICIANS Admitting Physician: Zahida Jacobs MD Discharge Diagnosis: ETD (eustachian tube dysfunction) ANUM CLOUD has been given the following list of follow-up instructions, prescriptions, and patient education materials: PATIENT FOLLOW-UP INFORMATION Diet: Regular Discharge Activity: Expect mild pain, Expect minimal amount of drainage and/or bleeding, Activity as tolerated Call Your Doctor For: Redness, swelling, or pus at operative site Additional Instructions: Keep right ear dry Ciprodex 4 drops in right ear 3 times daily for 5 days IF UNABLE TO CONTACT YOUR PHYSICIAN AND YOU FEEL IT IS AN EMERGENCY, GO TO THE NEAREST EMERGENCY ROOM OR CALL 911 I, ANUM CLOUD, have received the attached patient education materials/instruction s and have verbalized understanding: May we do a follow up call? Yes No I was present when discharge instructions were given Patient Signature Date Clinican/Nurse Signature Date Follow up: With: Address: When: Zahida Jacobs Comments: One month Pharmacy Information: You may receive a survey from [employer] asking you to rate your care experience. Your feedback is important and will help us understand what we do well and how we can improve the quality of care we provide to you, your loved ones and our community. It?s an honor to serve you. Thank you for choosing [facility] HERE ARE THE MEDICATION CHANGES THAT OCCURRED DURING YOUR HOSPITAL STAY Medications to Continue with No Changes Other Medications ethinyl estradiol-norgestimat e (Sprintec oral tablet) 1 Tablets By Mouth every day. PATIENT EDUCATION INFORMATION Instructions: Medication Leaflets: Normal [facility] Patient Education - Texton 1 Patient Education - Text Normal [facility] SEROLOGYOrdered By: Clarice Garnica on 04-23-2023 Beta hCG Ql Negative (04/23/23 8:04 AM) Normal [facility] [place] [facility] Sero Auto Diffon 04-21-2023 Basophils/100 WBC (Bld) 0.2 % Normal 0.0-2.0 [facility] Comment on above: Order Comment: Order Added by Discern Expert. Performed By: #### 2 [id number], [id number] #### [facility] [address] [place] [address] Basophils/Leukocytes Auto (Bld) [Pure # fraction] 0.0 E9/L Normal 0.0-0.2 [facility] Comment on above: Order Comment: Order Added by Discern Expert. Performed By: #### 2 [id number], [id number] #### [facility] [address] [place] [address] Eosinophils/100 WBC (Bld) 1.9 % Normal 0.0-8.0 [facility] Comment on above: Order Comment: Order Added by Discern Expert. Performed By: #### 2 [id number], [id number] #### [facility] [address] [place] [address] Eosinophils/Leukocyte s Auto (Bld) [Pure # fraction] 0.2 E9/L Normal 0.0-0.5 [facility] Comment on above: Order Comment: Order Added by Discern Expert. Performed By: #### 2 [id number], [id number] #### [facility] [address] [place] [address] Lymphocytes/100 WBC (Bld) 32.7 % Normal 14.0-50.0 [facility] Comment on above: Order Comment: Order Added by [employer] Expert. Performed By: #### 2 [id number], [id number] #### [facility] [address] [place] [address] Lymphocytes/Leukocyte s Auto (Bld) [Pure # fraction] 2.6 E9/L Normal 1.0-4.0 [facility] Comment on above: Order Comment: Order Added by Discern Expert. Performed By: #### 2 [id number], [id number] #### [facility] [address] [place] [address] Monocytes/100 WBC (Bld) 5.4 % Normal 4.0-14.0 [facility] Comment on above: Order Comment: Order Added by Discern Expert. Performed By: #### 2 [id number], [id number] #### [facility] [address] [place] [address] Monocytes/Leukocytes Auto (Bld) [Pure # fraction] 0.4 E9/L Normal 0.2-1.0 [facility] Comment on above: Order Comment: Order Added by Discern Expert. Performed By: #### 2 [id number], [id number] #### [facility] [address] [place] [address] Neutrophils/100 WBC (Bld) 59.8 % Normal 36.0-75.0 [facility] Comment on above: Order Comment: Order Added by Discern Expert. Performed By: #### 2 [id number], [id number] #### [facility] [address] [place] [address] Neutrophils/Leukocyte s Auto (Bld) [Pure # fraction] 4.7 E9/L Normal 2.0-7.5 [facility] Comment on above: Order Comment: Order Added by Discern Expert. Performed By: #### 2 [id number], [id number] #### [facility] [address] [place] [address] CBC w/ Auto Diffon Erythrocyte distribution width (RBC) [Ratio] 13.1 % Normal 10.9-14.2 [facility] Comment on above: Performed By: #### 2 [id number], [id number] #### [facility] [address] [place] [address] Hematocrit (Bld) [Volume fraction] 43.2 % Normal 34.0-46.0 [facility] Comment on above: Performed By: #### 2 [id number], [id number] #### [facility] [address] [place] [address] Hemoglobin (Bld) [Mass/Vol] 14.6 g/dL Normal 12.0-16.0 [facility] Comment on above: Performed By: #### 2 [id number], [id number] #### [facility] [address] [place] [address] MCH (RBC) [Entitic mass] 28.9 pg Normal 27.0-34.0 [facility] Comment on above: Performed By: #### 2 [id number], [id number] #### [facility] [address] [place] [address] MCHC (RBC) [Mass/Vol] 33.9 g/dL Normal 31.4-36.0 [facility] Comment on above: Performed By: #### 2 [id number], [id number] #### [facility] [address] [place] [address] MCV (RBC) [Entitic vol] 85.4 fL Normal 80.0-100.0 [facility] Comment on above: Performed By: #### 2 [id number], [id number] #### [facility] [address] [place] [address] Platelet mean volume (Bld) [Entitic vol] 7.1 fL Normal 6.4-10.8 [facility] Comment on above: Performed By: #### 2 [id number], [id number] #### [facility] [address] [place] [address] Platelets (Bld) [#/Vol] 350.0 E9/L Normal 150.0-500.0 [facility] Comment on above: Performed By: #### 2 [id number], [id number] #### [facility] [address] [place] [address] RBC (Bld) [#/Vol] 5.1 E12/L Normal 4.3-5.9 [facility] Comment on above: Performed By: #### 2 [id number], [id number] #### [facility] [address] [place] [address] WBC corrected for nucl RBC Auto (Bld) [#/Vol] 7.8 E9/L Normal 4.0-11.0 [facility] Comment on above: Performed By: #### 2 763569, [id number] #### [facility] [address] [place] [address] Consent for Treatmenton 04-12 Consent for Treatment [id number]#1 .00TIFF Normal [facility] Consent for Procedure/Surger yon 04-09-2023 Consent for Procedure/Surgery [id number]#1 .00CD:127 Normal [facility] Consent for Procedure/Surger yon 04-08-2023 Consent for Procedure/Surgery [id number]# 1.00CD:127 [facility] Physician Orderon 04-08-2023 Physician Order [id number]# 1.00CD:127 [facility] Coding Summary.on 2022 Coding Summary. CD:[id number] W w+PGhlYWQ+JK5HQPSjX50 hoPQhgT0kU5ZKIDmDEjjg QMVCTRyBCuXxxvUdSG3md XNjZXJu IC8+KL3oYWVoFmultKGxf 6Z1yWT4Y63gxk9oYVhnyB A6SNAlIuGeghtay5hlmOq 6IDcuNmluOyBt ETIilU22GDC5zP30Vr04c RZiuZUoo7tbfPa1EvUkNI YqJAC4bDheTHbke7YdCRE rM34jtNQdu0V2 BYZrdMzvxSSnOcSxhKH2p L0bOBoaiwwde6yxrirbEi t7hr52cTLzz4L0xPB8J8R qhuO6LDRjpSMu LewqbAQIdW8jtgjnh3yyp gdcVnEfNBPeVJg0EBk8GG FsdZzlSbYxDJ27JKE9CLP lqsEjY3MfJWSk wTtpGxS8s7N7Wp2NH4RLW wigY7IWTZWRBYelwDH+PC 49av94U7BiLujhCfl2ITA zHTB6zJI9hA2a ETKfKWwvl3I1fHU7D5Xid uBtbi2gk0bkWDApXBlmU8 6qoUZie0F8YINnwRL9ACF jwXyhAsKydL39 Oyc+SWTwyFbba8FgWhurr 0gor3tctFr2ClkqGOKmik BtrZrkUHD5h0QySc8sJOB edGK5mAM1iG1v VtDxDtQ2NDtcM085PkGhh FMuLuffJ02rX3VlsAB+PH YyRmr6XBUwpZttCV0tB7T hZGRpbmctbGVm rQycRT9fQCAgoahsAZBfn G6pOVPrO6b2QlWcQsQ1WN vvA6KcLLVfhdwgIl07rS1 sVtCxVoS4VGqo J6GbwhM1YSDgnWHvFSkuE SL9X93hg5M7DZPaHKQkJJ E4pBA4lS0twYyejklppOZ mdDsgdmVydGlj YLicPPvyE655AAMfpBruL kNvZGluZyBEYXRlOiAgMD UvMDcvMjAyMzwvdGQ+PHR oPIM5fXgyXZHb cVCeBKffHb7deAguwSwcJ Y7xUUIbdpzePGCnyX1mSS WqgENwzKjgCC7wDYIgxse fu765GgRhHPI3 URQutEAdV9YgoK3oJuXxU YPxILRgZ0TbwOXyEXqhE0 37CYjvKxU2MPDbaeCvE1N sLWFsaWduOiB0 o7M5Zl0No8QvxmdpQ7Zhb LHoEmHuQgnlRLr8R7YvMn wvdHI+EG97XATcEL68HNn 5TVW4lGiuOGko YXKmK3VehO4rEhBiFMSlR GRkOyc+PHRhYmxlIHdpZH RoPScxMDAlJyBzdHlsZT0 mNa9kJGOfOPXw zWngnCHwLkZcf2ldHURiK PitUO4ckLtbZ0EicYQ1UX Ozb5r5Av37W76dA1TrqHX +OKNbhPK0sCW8 kY5xMsSfNeG7HQgkL901Q wUhiLOjIkjtj7gdh2jzkE o2HeB3RGUwctMxoSnxPEI 0m0WeVo50Q21n IHdpZHRoPSIxNSUiIHZhb Nmxax8oeS3mGx6+PGNvbC U2cPO9tA4kYgLmNdG0TBk zB909LsVdwVUx Opris3lis0sggTt6GpKbK RZmffPckRggGQW5y0VvIi 05O5LooYfhe2FbRdk3hj9 0pMBmn9O8iDL2 X7HjUFPkggnhiWJymDkxL H3fOBIeonpvWQOabT5gML PeK3h6OrZeSvX1LJkyA9F tpmO7RILcrDNq BYHynUAAqL6nysaoa8btd rgiYuXzZARwHVy8QJv1ZG BlvQwnQjLlULK5DlY1QKA 3dGVhkB4rrBwd dqmcsT7qUem+QUE5cEWsh ZXQDV9pIscvtBZ+PHRkIH R5fLvwWXozRXNrhM5dMUZ gO1x1VzUsDfR9 XWspH0SvsuI9AWLlnYHuP GQerWZWzV4iogidc4wtce yeNaNhRTRrNRe3DLz9PJA saWduOiBsZWZ0 IrC0SOC4qDDfhS6snAyuz ukvoD1cMvr+QmlydGggRG V1XAj8E6OjVrn5XAEcqDp bUB0bxSBhICty Zy9dhWvmmExwEN3nEBMzp emde932MjMsf1oaRILzeT UbMBrlLUR8A99iv5I7BDN jZAFuLRZ3pTT2 vX7yhEejzjxtxIJjzFrml xHwnMcoJDryOButK415BK CpaPpvWgOqBMc5G4EfKdz 4AWNfsSsbNK8z hNZqZYldDp1jtXzjxQhzX X0oWEBiqjsia064PwIun2 lqWGDuuEGbHHwaUQI9Q75 on2J9XIUkSVGw QFV7zEQ3yU8jmQzcitkma GVmdDsgdmVydGljYWwtYW qlF186GPAlbWazVhEdlIb 0M7AfXta5YAYb lDrcEV7uuYDgRVfjSe8ig SnpaVqrAL0oGPPacmjuz9 41BnPwg9plXKFnaWQnYIa pOUK5V22ww6H0 MGCgBZJvABQ3kVI4pT9sv GlnbjogbGVmdDsgdmVydG cqPStsYKhgF979JEOahAr nPlBhdGllbnQg RZwvBTt3O4OmVclhgST+P Z80JTPqBQ93oXDjiFVes5 hmrWz1PpRsJYEfPSW8eIt fMEmxd7PyCBBs H80xfKUry1I5IQNjhJaas JAfEbYhzUJ0qZ4gJNxgrc lax5utpybkVcnkd6ozqq2 3nC31Z42tJBfs ZHRoPSIzMCUiIHZhbGlnb l0gaZ3yWh0+RRXxkWA2aM J0aT2bXRHhXcV7KKsqU94 9InRvcCIvPjxj x4gas7kxgWh2JuC8LBYxc rHgyAezXGK8n1YoZe58T1 9sIHdpZHRoPSIyMCUiIHZ ysYyiqa4nzC4t Ii8+YOHsiYR3vKP3aC2mW kBeIjG5LMqkO832SbShnU QkCsieG61iO1WuqHC+PHR aOnf6KMScdJzh DY0gwNOwOVueSw8eJLB0M sCoBfPaRFyfU9IkZHVfow tcdivxxJF8KTUmWXNhqK7 8Eg6ddEiwHNAo lGVXsY9legbeh9doxjxwK aXrDSVzWWe5CVg8JVZeqL rgMtUiHBH6AyG7BWE0jBP ehZ5erJqntayl bF1nA9UyTPFnbxxkJj88i P9gWnKyJuT6RJpgCzk+SE lHSCwgREFSSUEgRTwvdGQ +GYVzFFU1eCuw CMcaTIMztG7qLUTcN5m7D qYxBcN7DTerV6WaKZEpgw mdEf19gQ7mDkTmQzO1PLb nW6QabmP0SDQg gTVwGSfnRGZ0J23iy2F7X DQyPPGwQWX5wMT4qZ9gjD lnbjogbGVmdDsgdmVydGl cAVquHSfzP389 KMWuvQhsPfX7XbK7VcVkB JQ2P0VyRtj6VUGftIbqEJ 3jyBCoYTnpLl3uxFewjTx nCC4yUJHhqjjw FONyfE6rRZMkjIDhxVovZ P8yPRByubnos089XiMyNJ Z1ABCepYQuK7BbuV6kJzM hAJOvXYUsK6Es hXTyYMtsC507GYqyMoZ1V PPhgvCdO5YfBCHjmGzbTk A4g8P1Uk2zHSMVRMVywhp vdGQ+PHRkIHN0 lJkiQBowEMEbpF7wKDMmO 4s0BmCeDgP1JDgiJ3LgTL AwchyvWo64sM1aZyJjIkS 5NZwoP9UwztL6 PIBguEMoJLzeNZD4B19cr 6G8JUOzTDNwFNT9fNS4rZ 1hbGlnbjogbGVmdDsgdmV ydGljYWwtYWxp R898XNLlhPtvZcDhoLDjF TwvdGQ+TLFdMGU0vBcxLY evZWEgwE5lYDXyR1t4ZbJ hXoA4OHinM1Mh LSXjdjchOb60aQ4tYgWaV nB2KPkaW2UtkxQ4UYSsoW ZjINarBQF7Q12ih6C9FQS dSLWkHIQ4nDC3 eT5uvNfhnfqzrHPpbUdhe iQvuUbvLQceXZddM846RO KoaQlwJi25hTPrxTuntjL 5L5YrZvchdLY+ ZK53BQMkEX99fQLuoIIts 5doyJh6MjBbARPeKEU4tB wqIInwm3BeHDViS40sxFX nj5A1DVNhxMuy zCTsBiCysVP4qW8pMLvaj hbpm6wslczkYgqba9iuws 78uF76K13wWTxeMURpBLR zMCUiIHZhbGln gu8qjO2qUb4+CLNdrSJ2j CM2rV0uEiYpGeL1HYslA3 75MjZjzMQdUfmrp1xbp8q tmTj3ObKxGAFs urYgwVslQEQ4n5SgSm51M 29sIHdpZHRoPSIyMCUiIH OiuHnias2xeS3cJk1+PC9 mi3mggr80cS47 dHI+WVNsLAW8vMwjNBpcS HFwlX2vTPcqXjR2ZGVjHz LhzL56gSFmCHknAl5ilKp rzMohBK5bQRLu bkmhg010DcTot8mlKSFzm LCqIUrjHFK1S34vq4J6BZ QsJMGvYRG6aHL8iV5waCy nbjogbGVmdDsg boKtgUvlCEmvLVrzU462S MRzxQbcSbDvrJYsQ8pdvg ZKEM1hAplurYM+PHRkIHN 0eWxlPSdwYWRk iF6aUMToW7l0RmLjTvO0R EvrV8HzhqZ0QATldZVgNX AncSQIoM1yxzmea9tjgvs gIzAwMDAwMDt0 UWe7FSAhyMfuMlJkWXO8P jH8EUL1oMTmbW7kkGftcz ohuK1iCjs+RklOOjwvdGQ +DBWvTZH8vTkp FMyrXUWhvF7mNBUtX9k6K rHaAwW6UHyzD2XggkW3KP WwwGUsXHDpqQZPaE0dzga fg5ygjljwCyAe TEYfKNd7VKg7NXSygZmyQ sIpDLH6AeP2SKO5eFAwlM 6etQjshmndvQ1lFhg+TVJ OOjwvdGQ+PHRk CUY9cYkpJTgyDYKafQ8hK JHeP4y1CkNdOvM1PEvmA6 KwjwI7YDQgcVPiHVAklMK PgQ3lskhnf4xu shlxOtSxHZOtUUd8TZo9J KDhpZxtLcEdKCD6DfA9PH O1dCQwuE5ozDfmtzlbzZ3 wOyc+AXB5PXW5 PP89LD69D0IlYqslnKVrv +PHRhYmxlIHdpZHRoPS svZEHnYqSaaCatCE8dSl4 yZGVyLWNvbGxh cHNlOiBj (more content not included)... Normal [facility] US Abdomen, Limitedon 2022 US Abdomen, Limited Exam Date/Time: 11/11/2022 10:51 EDT Reason for Exam: R10.9 Report IMPRESSION: SUSPECTED FATTY INFILTRATION OF THE LIVER. NEGATIVE ULTRASOUND OF THE GALLBLADDER. CLINICAL HISTORY: R10.9. Right upper quadrant pain and nausea. COMMENT: The liver is normal in size and configuration. The echogenicity of the liver suggests diffuse fatty infiltration. No focal liver lesion is evident. The gallbladder is normal in size and ultrasound appearance. No gallstones are noted. There is no biliary ductal dilatation. The common bile duct measures approximately 5 mm in diameter at the josefina hepatis. The common bile duct is obscured beyond the josefina hepatis. No free fluid is noted collecting peripheral to the liver. Ordering Provider: , FINAL REPORT Dictated: 11/13/2022 7:43 am Ben Martin M.D. Signed (Electronic Signature): 11/13/2022 7:43 am Signed by: Ben Martin M.D. Transcribed by: TENNILLE Technologist: HW Normal [facility] Auto Diffon 11-11-2022 Basophils/100 WBC (Bld) 0.2 % Normal 0.0-2.0 [facility] Comment on above: Order Comment: Order Added by Discern Expert. Performed By: #### 2 260379, [id number], 0482028, 1996195, 5029925 ####Gil Edmar [address] [address] Basophils/Leukocytes Auto (Bld) [Pure # fraction] 0.0 E9/L Normal 0.0-0.2 [facility] Comment on above: Order Comment: Order Added by Discern Expert. Performed By: #### 2 326035, 79526147, 4338111, 0394621, 9093547 ####[address] [address] Eosinophils/100 WBC (Bld) 2.2 % Normal 0.0-8.0 [facility] Comment on above: Order Comment: Order Added by Discern Expert. Performed By: #### 2 718330, 66158684, 7763204, 1026629, 5881015 ####[address] [address] Eosinophils/Leukocyte s Auto (Bld) [Pure # fraction] 0.2 E9/L Normal 0.0-0.5 [facility] Comment on above: Order Comment: Order Added by Discern Expert. Performed By: #### 2 670762, 14100306, 4322708, 8663190, 1873038 ####[address] [address] Lymphocytes/100 WBC (Bld) 34.9 % Normal 14.0-50.0 [facility] Comment on above: Order Comment: Order Added by Discern Expert. Performed By: #### 2 512177, 27287759, 4552592, 2420106, 7657742 ####[address] [address] Lymphocytes/Leukocyte s Auto (Bld) [Pure # fraction] 2.8 E9/L Normal 1.0-4.0 [facility] Comment on above: Order Comment: Order Added by Discern Expert. Performed By: #### 2 981164, 54021908, 0197884, 3707292, 5281622 ####[address] [address] Monocytes/100 WBC (Bld) 6.1 % Normal 4.0-14.0 [facility] Comment on above: Order Comment: Order Added by Discern Expert. Performed By: #### 2 607608, 79960150, 3629243, 1760378, 1912313 ####[address] [place] [address] Monocytes/Leukocytes Auto (Bld) [Pure # fraction] 0.5 E9/L Normal 0.2-1.0 [facility] Comment on above: Order Comment: Order Added by Discern Expert. Performed By: #### 2 193498, 60368404, 2989063, 9488421, 3082040 ####[address] [place] [address] Neutrophils/100 WBC (Bld) 56.6 % Normal 36.0-75.0 [facility] Comment on above: Order Comment: Order Added by Alma Expert. Performed By: #### 2 780137, 91325984, 3440903, 9729943, 9872138 ####[address] [address] Neutrophils/Leukocyte s Auto (Bld) [Pure # fraction] 4.6 E9/L Normal 2.0-7.5 [facility] Comment on above: Order Comment: Order Added by Alma Expert. Performed By: #### 2 868417, 40245226, 7771901, 8431275, 1642210 ####[address] [place] [address] CBC w/ Auto Diffon 3 Erythrocyte distribution width (RBC) [Ratio] 12.9 % Normal 10.9-14.2 [facility] Comment on above: Performed By: #### 2 521830, 83089861, 3105077, 7876012, 6907506 ####[address] [place] [address] Hematocrit (Bld) [Volume fraction] 42.8 % Normal 34.0-46.0 [facility] Comment on above: Performed By: #### 2 835239, 59036307, 0307272, 5855385, 0030131 ####[facility] [address] [place] [address] Hemoglobin (Bld) [Mass/Vol] 14.7 g/dL Normal 12.0-16.0 [facility] Comment on above: Performed By: #### 2 923899, 91256465, 8274359, 4815417, 5978218 ####[address] [address] MCH (RBC) [Entitic mass] 28.9 pg Normal 27.0-34.0 [facility] Comment on above: Performed By: #### 2 254411, 20224317, 2786241, 8951715, 5260208 ####[address] MCHC (RBC) [Mass/Vol] 34.3 g/dL Normal 31.4-36.0 [facility] Comment on above: Performed By: #### 2 147317, 25745345, 5257810, 6277056, 1586464 ####[address] [address] MCV (RBC) [Entitic vol] 84.2 fL Normal 80.0-100.0 [facility] Comment on above: Performed By: #### 2 935347, 91611023, 7240684, 3386834, 7888780 ####[address] [address] Platelet mean volume (Bld) [Entitic vol] 6.9 fL Normal 6.4-10.8 [facility] Comment on above: Performed By: #### 2 347090, 26810929, 6156999, 2720059, 6611666 ####[address] [address] Platelets (Bld) [#/Vol] 356.0 E9/L Normal 150.0-500.0 [facility] Comment on above: Performed By: #### 2 969956, 87350776, 1553792, 0386090, 3116598 ####[facility] [address] [place] [address] RBC (Bld) [#/Vol] 5.1 E12/L Normal 4.3-5.9 [facility] Comment on above: Performed By: #### 2 525164, 30184800, 4883306, 5659006, 9753986 ####[facility] [address] [place] [address] WBC corrected for nucl RBC Auto (Bld) [#/Vol] 8.2 E9/L Normal 4.0-11.0 [facility] Comment on above: Performed By: #### 2 088569, 93621864, 6858062, 9887986, 6187550 ####[facility] [address] [place] [address] CHEMISTRYOrdered By: SYSTEM SYSTEM on 11-11-2022 Albumin [Mass/Vol] 4.2 g/dL Normal 3.3 - 5.0 gm/dL [facility] Albumin/Globulin [Mass ratio] 1.2 {ratio} Normal 1.1 - 2.2 [facility] ALP [Catalytic activity/Vol] 44 [iU]/d Normal 21 - 98 Int._Unit/L [facility] ALT No additional P-5'-P [Catalytic activity/Vol] 20 [iU]/d Normal 6 - 46 Int._Unit/L [facility] Anion gap [Moles/Vol] 12 mmol/L Normal 6 - 16 mEq/L [facility] AST [Catalytic activity/Vol] 39 [iU]/d Normal 5 - 43 Int._Unit/L [facility] Bilirubin [Mass/Vol] 0.5 mg/dL Normal 0.0 - 1 .1 mg/dL [facility] Calcium [Mass/Vol] 9.2 mg/dL Normal 8.9 - 11. 1 mg/dL [facility] Chloride [Moles/Vol] 103 mmol/L Normal 101 - 1 11 mmol/L [facility] CO2 [Moles/Vol] 26 mmol/L Normal 21 - 31 mmol/L [facility] Creatinine [Mass/Vol] 0.7 mg/dL Normal 0.5 - 1.3 mg/dL [facility] Remisol GFR/1.73 sq M.predicted among non-blacks MDRD (S/P/Bld) [Vol rate/Area] 127 mL/min/1.73 m2 Normal >=59mL/min/1. 73 m2 [facility] Chem S Globulin (S) [Mass/Vol] 3.5 g/dL Normal 1.4 - 4.0 gm/dL [facility] Glucose [Mass/Vol] 92 mg/dL Normal 55 - 199 mg/dL [facility] Lipase [Catalytic activity/Vol] 37 U/L Normal 13 - 58 unit/L [facility] Potassium [Moles/Vol] 4.1 mmol/L Normal 3.5 - 5.3 mmol/L [facility] Protein [Mass/Vol] 7.7 g/dL Normal 6.0 - 7.8 gm/dL [facility] Sodium [Moles/Vol] 137 mmol/L Normal 135 - 145 mmol/L [facility] Urea nitrogen [Mass/Vol] 11 mg/dL Normal 5 - 21 mg/dL [facility] Urea nitrogen/Creatinine [Mass ratio] 16 mg/mg Normal 10 - 20 [facility] Remisol CMPon 11-11-2022 Albumin [Mass/Vol] 4.2 g/dL Normal 3.3-5.0 [facility] Comment on above: Performed By: #### 2 177108, 05888479, 5100079, 2207808, 9163653 ####[facility] [address] [place] [address] Albumin/Globulin (S) [Mass conc ratio] 1.2 Normal 1.1-2.2 [facility] Comment on above: Performed By: #### 2 637567, 19311349, 2295673, 7672353, 5245998 ####[facility] [address] [place] [address] ALP [Catalytic activity/Vol] 44 Int._Unit/L Normal 21-98 [facility] Comment on above: Performed By: #### 2 106346, 18831602, 9950680, 1670796, 8322605 ####[facility] [address] [place] [address] ALT No additional P-5'-P [Catalytic activity/Vol] 20 Int._Unit/L Normal 6-46 [facility] Comment on above: Performed By: #### 2 583547, 38180330, 6339229, 7185115, 2529086 ####[facility] [address] [place] [address] Anion gap [Moles/Vol] 12 mmol/L Normal 6-16 [facility] Comment on above: Performed By: #### 2 103661, 88570377, 7784851, 4298433, 7797007 ####[address] [place] [address] AST [Catalytic activity/Vol] 39 Int._Unit/L Normal 5-43 [facility] Comment on above: Performed By: #### 2 996781, 61837508, 5166637, 0419937, 9407315 ####[facility] [address] [place] [address] Bilirubin [Mass/Vol] 0.5 mg/dL Normal 0.0-1.1 [facility] Comment on above: Performed By: #### 2 862242, 04257965, 8644091, 7114619, 1535821 ####[address] [place] [address] Calcium [Mass/Vol] 9.2 mg/dL Normal 8.9-11.1 [facility] Comment on above: Performed By: #### 2 755514, 07993989, 4722930, 5021950, 6884735 ####[facility] [address] [place] [address] Chloride [Moles/Vol] 103 mmol/L Normal 101-111 [facility] Comment on above: Performed By: #### 2 847787, 44412651, 5758588, 8546124, 8225672 ####[facility] [address] [place] [address] CO2 [Moles/Vol] 26 mmol/L Normal 21-31 [facility] Comment on above: Performed By: #### 2 123899, 76684196, 8639023, 3636957, 9465044 ####[facility] [address] [place] [address] Creatinine [Mass/Vol] 0.7 mg/dL Normal 0.5-1.3 [facility] Comment on above: Performed By: #### 2 674325, 10740231, 7694720, 5267268, 7109708 ####[facility] [address] [place] [address] Globulin (S) [Mass/Vol] 3.5 g/dL Normal 1.4-4.0 [facility] Comment on above: Performed By: #### 2 650263, 04769033, 6688557, 0394291, 4164091 ####[facility] [address] [place] [address] Glucose [Mass/Vol] 92 mg/dL Normal 55-199 [facility] Comment on above: Result Comment: If t his glucose result represents a fasting glucose, interpretation should refer to the following reference range: 55-99 mg/dL Performed By: #### 2 018452, 22479683, 3230192, 2624295, 6270857 ####[facility] [address] [place] [address] Potassium [Moles/Vol] 4.1 mmol/L Normal 3.5-5.3 [facility] Comment on above: Performed By: #### 2 997126, 12217695, 6337507, 1408611, 2526629 ####[facility] [address] [place] [address] Protein [Mass/Vol] 7.7 g/dL Normal 6.0-7.8 [facility] Comment on above: Performed By: #### 2 675074, 80426510, 4497762, 2317865, 6794158 ####[facility] [address] [place] [address] Sodium [Moles/Vol] 137 mmol/L Normal 135-145 [facility] Comment on above: Performed By: #### 2 461288, 98324564, 5009108, 5712515, 3698361 ####[facility] [address] [place] [address] Urea nitrogen [Mass/Vol] 11 mg/dL Normal 5-21 [facility] Comment on above: Performed By: #### 2 639698, 85868091, 0467999, 1255200, 6781634 ####[facility] [address] [place] [address] Urea nitrogen/Creatinine [Mass ratio] 16 No Units Normal 10-20 [facility] Comment on above: Performed By: #### 2 778379, 09351686, 9059289, 0890267, 6296157 ####[facility] [address] [place] [address] Consent for Treatmenton Consent for Treatment [id number]#1 .00CD:127 Normal [facility] HEMATOLOGYOrdered By: SYSTEM SYSTEM on 11-11-2022 Basophils/100 WBC (Bld) 0.2 % Normal 0.0 - 2.0 % [facility] HemeAutoSS Basophils/Leukocytes Auto (Bld) [Pure # fraction] 0.0 E9/L Normal 0.0 - 0.2 E9/L [facility] HemeAutoSS Eosinophils/100 WBC (Bld) 2.2 % Normal 0.0 - 8.0 % [facility] HemeAutoSS Eosinophils/Leukocyte s Auto (Bld) [Pure # fraction] 0.2 E9/L Normal 0.0 - 0.5 E9/L [facility] HemeAutoSS Lymphocytes/100 WBC (Bld) 34.9 % Normal 14.0 - 50.0 % [facility] HemeAutoSS Lymphocytes/Leukocyte s Auto (Bld) [Pure # fraction] 2.8 E9/L Normal 1.0 - 4.0 E9/L [facility] HemeAutoSS Monocytes/100 WBC (Bld) 6.1 % Normal 4.0 - 14.0 % [facility] HemeAutoSS Monocytes/Leukocytes Auto (Bld) [Pure # fraction] 0.5 E9/L Normal 0.2 - 1.0 E9/L [facility] Neutrophils/100 WBC (Bld) 56.6 % Normal 36.0 - 75.0 % [facility] Neutrophils/Leukocyte s Auto (Bld) [Pure # fraction] 4.6 E9/L Normal 2.0 - 7.5 E9/L [facility] HEMATOLOGYOrdered By: Nereida Butt on 11-11-2022 Erythrocyte distribution width (RBC) [Ratio] 12.9 % Normal 10.9 - 14.2 % [facility] Hematocrit (Bld) [Volume fraction] 42.8 % Normal 34.0 - 46.0 % [facility] S Hemoglobin (Bld) [Mass/Vol] 14.7 g/dL Normal 12.0 - 16.0 gm/dL [facility] MCH (RBC) [Entitic mass] 28.9 pg Normal 27.0 - 34.0 pg [facility] MCHC (RBC) [Mass/Vol] 34.3 g/dL Normal 31.4 - 36.0 gm/dL [facility] MCV (RBC) [Entitic vol] 84.2 fL Normal 80.0 - 100.0 fL [facility] Platelet mean volume (Bld) [Entitic vol] 6.9 fL Normal 6.4 - 10.8 fL [facility]SS Platelets (Bld) [#/Vol] 356.0 E9/L Normal 150.0 - 500.0 E9/L [facility] RBC (Bld) [#/Vol] 5.1 E12/L Normal 4.3 - 5.9 E12/L [facility] WBC corrected for nucl RBC Auto (Bld) [#/Vol] 8.2 E9/L Normal 4.0 - 11.0 E9/L [facility] Lipase Levelon 11-11-2022 Lipase [Catalytic activity/Vol] 37 U/L Normal 13-58 [facility] Comment on above: Performed By: #### [id number] ####[facility] [address] [place] [address] Physician Orderon 11-11-2022 Physician Order [id number]# 1.00CD:127 Normal [facility] Physician Order [id number] 0 [id number]# 1.00CD:127 Normal [facility] Physician Order [id number]#1 .00CD:127 Normal [facility] eGFRon 11-11-2022 GFR/1.73 sq M.predicted among non-blacks MDRD (S/P/Bld) [Vol rate/Area] 127 mL/min/1.73 m2 Normal >=59 [facility] Comment on above: Order Comment: Order added by Discern Expert. Result Comment: Grease Buffer milagros kidney disease could be indicated at eGFR's of less than 60 mL/min/1.73m2. Kidney failure is indicated at less than 15 mL/min/1.73m2. Performed By: #### 2 [id number] ####[facility] [address] [place] [address] CT Abdomen and Pelvis WO con traston 11-08-2022 Radiology Study observation (narrative) [facility] Work Phone: IMPRESSION: 1. No specific etiology identified to explain the patient's abdominal pain. 2. There are a few nodules in the lung bases measuring up to 0.5 cm, likely postinfectious or inflammatory in a patient of this age. 3. Normal appendix. 4. Urinary bladder wall thickening. Please correlate with urinalysis for infection. Dictated Physician: Monica Gale Dictated On: 11/08/2022 01:15 Interpreted By: Monica Gale Transcribed By: Monica Gale Signed By: Monica Gale Signed On: 11/08/2022 01:21 RADIOLOGY EXAMINATION: CT ABDOMEN/PELVIS WITHOUT CONTRAST, 11/08/2022 12:00 AM EDT HISTORY: DIAGNOSES: -lower abdominal pain COMPARISON: None. TECHNIQUE: CT scan of the abdomen and pelvis was performed without IV contrast. CT dose reduction technique was used, including Automated Exposure Control. FINDINGS: There is a 0.5 cm nodule in the left lower lobe (series 2, image 2). There is a 0.3 cm nodule in the right middle lobe (series 2, image 14). There is a 0.4 cm nodule in the right lower lobe (series 2, image 4). Abdomen: Please note that the sensitivity for detection of focal lesions or vascular disease is markedly reduced without intravenous contrast. The liver and spleen are unremarkable. There is no intra or extrahepatic biliary duct dilatation. The gallbladder is unremarkable. The pancreas, adrenal glands, kidneys, and bowel loops, including the appendix, are unremarkable. There is no mesenteric or retroperitoneal lymphadenopathy. Pelvis: The bladder demonstrates mild wall thickening. The rectum is unremarkable. There is no iliac or inguinal lymphadenopathy. The uterus is present. The ovaries appear within normal limits by CT. Bone windows show no aggressive osseous lesions. RADIOLOGY Chucho Gale MD - 11/08/2022 EXAMINATION: CT ABDOMEN/PELVIS WITHOUT CONTRAST, 11/08/2022 12:00 AM EDT HISTORY: DIAGNOSES: -lower abdominal pain COMPARISON: None. TECHNIQUE: CT scan of the abdomen and pelvis was performed without IV contrast. CT dose reduction technique was used, including Automated Exposure Control. FINDINGS: There is a 0.5 cm nodule in the left lower lobe (series 2, image 2). There is a 0.3 cm nodule in the right middle lobe (series 2, image 14). There is a 0.4 cm nodule in the right lower lobe (series 2, image 4). Abdomen: Please note that the sensitivity for detection of focal lesions or vascular disease is markedly reduced without intravenous contrast. The liver and spleen are unremarkable. There is no intra or extrahepatic biliary duct dilatation. The gallbladder is unremarkable. The pancreas, adrenal glands, kidneys, and bowel loops, including the appendix, are unremarkable. There is no mesenteric or retroperitoneal lymphadenopathy. Pelvis: The bladder demonstrates mild wall thickening. The rectum is unremarkable. There is no iliac or inguinal lymphadenopathy. The uterus is present. The ovaries appear within normal limits by CT. Bone windows show no aggressive osseous lesions. IMPRESSION IMPRESSION: 1. No specific etiology identified to explain the patient's abdominal pain. 2. There are a few nodules in the lung bases measuring up to 0.5 cm, likely postinfectious or inflammatory in a patient of this age. 3. Normal appendix. 4. Urinary bladder wall thickening. Please correlate with urinalysis for infection. Dictated Physician: Monica Gale Dictated On: 11/08/2022 01:15 Interpreted By: Monica Gale Transcribed By: Monica Gale Signed By: Monica Gale Signed On: 11/08/2022 01:21 [facility] Work Phone: CT Abdomen and Pelvis WO con trastOrdered By: Chucho Gale on 11-08-2022 [facility] Work Phone: HCG ( test) Ql (U)o n 11-07-2022 [facility] HCG QUALITATIVE, URINEon HCG ( test) Ql (U) Negative Negative [facility] URINE DIPSTICK WITH REFLEX M ICROSCOPYon 11-07-2022 Appearance (U) CLEAR Clear [facility] Bilirubin (U) [Mass/Vol] Negative Negative [facility] Blood Visual Ql (U) Trace Abnormal Negative [facility] Color (U) YELLOW [facility] Epithelial cells LM.HPF (Urine sed) [#/Area] 1+ Abnormal None seen /[HPF] [facility] Glucose (U) [Mass/Vol] Normal Normal [facility] Interpretation and review of laboratory results Abnormal [facility] Ketones Ql (U) Negative Negative [facility] Leukocyte esterase Test strip Ql (U) Trace Abnormal Negative [facility] Nitrate Ql (U) Negative Negative [facility] pH (U) 5.0 [pH] 5.0 - 9.0 [facility] Protein Ql (U) see below Negative [facility] Comment on above: Unable to report Uri ne Protein due to engineer and geologist issue w/ test strips. Please contact lab within 48 hours of specimen collection to request a Quantitative Urine protein if needed. RBC Ql (U) /[HPF] 0 - 2 /[HPF] [facility] Specific gravity (U) [Rel density] 1.025 1.010 - 1.030 [facility] Type of Urine collection method Clean catch [facility] Urobilinogen (U) [Mass/Vol] Normal Normal [facility] WBC Ql (U) /[HPF] 0 - 5 /[HPF] [facility] MRI Knee w/o Righton 023 MRI Knee w/o Right History: Medial knee pain and buckling sensation. Technique: Multiplanar multisequence MRI of the knee was performed without contrast. Comparison: Radiograph the knee 07/15/2022 Findings: Quadriceps and patellar tendons are intact. No joint effusion. Anterior and posterior cruciate ligaments are intact. The medial collateral ligament, lateral collateral ligament, and popliteus are intact. The medial and lateral meniscus are intact. No well-defined or measurable cartilage defect identified. Popliteal fossa structures are intact. Tiny Delgado cyst. IMPRESSION: Ligaments and menisci are intact. Report reported and signed by Franklyn Rojas on 08/01/2022 1439 Normal [facility] [employer] COVID/FLU RT-PCRon SARS-CoV-2 (COVID-19) RNA ERICK+probe Ql (Unsp spec) Negative [employer] Other COVID/FLU RT-PCR Negative [facility] [employer] Other Quick Strepon 07-14-2022 S. pyogenes Org specific cx Ql (Throat) Negative [employer] Other Quick Strep [employer] Other XR KNEE RIGHT 3 VIEWS (SPECI FY VIEWS IN COMMENTS)on 05-01-2022 XR KNEE RIGHT 3 VIEWS (SPECIFY VIEWS IN COMMENTS) EXAMINATION: XR KNEE RIGHT 3 VIEWS (SPECIFY VIEWS IN COMMENTS) 05/01/2022 1:25 pm HISTORY: ORDERING SYSTEM PROVIDED HISTORY: Chronic pain of right knee, TECHNOLOGIST PROVIDED HISTORY: Illness/Other Reason for exam: Chronic pain in right knee Cancer History: no Surgery, RadiationHistory: no Encounter Type: Initial Additional signs and symptoms: ORDERING SYSTEM PROVIDED DIAGNOSIS CODES: M25.561 Chronic pain of right knee G89.29 Chronic pain of right knee COMPARISON: None IMPRESSION: FINDINGS/ No acute fracture or traumatic malalignment. No erosions or periosteal reaction. No degenerative changes. Normal soft tissues. Workstation ID: [id number] Dictated by: NATHALIA HALL on [facility] May 01, 2022 6:32:47 PM EDT Transcribed by: NATHALIA HALL on [facility] May 01, 2022 6:32:47 PM EDT Finalized by: NATHALIA HALL on ThuMay 01, 2022 6:32:47 PM EDT [facility] Comment on above: Order Comment: Injur y/Trauma or Illness?:Illness/Other How long have you had these symptoms (acute/chronic)?:Chronic Reason for exam?:Chronic pain in right knee History of cancer?:no Surgeries, chemotherapy, or radiation?:no Type of Exam?:Initial Additional signs and symptoms?: XR LUMBAR SPINE 2-3 VIEWS (S TANDARD)on 05-01-2022 XR LUMBAR SPINE 2-3 VIEWS (STANDARD) EXAMINATION: XR LUMBAR SPINE 2-3 VIEWS (STANDARD) 05/01/2022 2:25 pm HISTORY: ORDERING SYSTEM PROVIDED HISTORY: Chronic right-sided low back pain with right-sided sciatica, TECHNOLOGIST PROVIDED HISTORY: Illness/Other Reason for exam: Chronic right-sided low back pain with right-sided sciatica, Chronic right-sided low back pain with right-sided sciatica Cancer History: no Surgery, RadiationHistory: no Encounter Type: Initial Additional signs and symptoms: ORDERING SYSTEM PROVIDED DIAGNOSIS CODES: M54.41 Chronic right-sided low back pain with right-sided sciatica G89.29 Chronic right-sided low back pain with right-sided sciatica COMPARISON: None. FINDINGS: Two views. Hypoplastic 12th ribs with 5 fully formed lumbar vertebral bodies. Vertebral body and intervertebral disc space heights are preserved. Facets are anatomically aligned. Normal soft tissues. IMPRESSION: Normal lumbar spine radiographs. Workstation ID: [id number] Dictated by: DELMY GAFFNEY on ThuMay 07, 2022 6:32:57 AM EDT Transcribed by: DELMY GAFFNEY on ThuMay 07, 2022 6:32:57 AM EDT Finalized by: DELMY GAFFNEY on ThuMay 07, 2022 6:32:57 AM EDT [facility] Comment on above: Order Comment: Injur y/Trauma or Illness?:Illness/Other How long have you had these symptoms (acute/chronic)?:Acute Reason for exam?:Chronic right-sided low back pain with right-sided sciatica, Chronic right-sided low back pain with right-sided sciatica History of cancer?:no Surgeries, chemotherapy, or radiation?:no Type of Exam?:Initial Additional signs and symptoms?: XR Ribs Right With Chest 3+ Viewson 04-10-2021 1. No definite fractures or dislocations of the right ribs. 2. No acute cardiopulmonary disease. KKV/lab Workstation ID: [id number] [employer] EXAMINATION: XR RIBS RIGHT WITH CHEST 3+ VIEWS 04/10/2021 7:20 PM HISTORY: ORDERING SYSTEM PROVIDED HISTORY: right rib and thoracic pain, TECHNOLOGIST PROVIDED HISTORY: Injury/Trauma Reason for exam: Rib pain Cancer History: no Surgery, RadiationHistory: no Encounter Type: Initial Mechanism of injury: Right rib pain after playing at park, sob with previous hx of covid. ORDERING SYSTEM PROVIDED DIAGNOSIS CODES: R07.81 Rib pain COMPARISON: None. FINDINGS: AP chest, AP and oblique views of the right ribs in total of five films are provided which demonstrate no definite fractures or dislocations of the right ribs. There are no definite lytic or sclerotic lesions are seen. The visualized right clavicle, right shoulder joint, other visualized osseous structures appear intact. Surrounding soft tissues appear normal. The heart size seems normal. The aorta has normal contour. The lungs otherwise are clear. There is no congestive heart failure or pneumothorax. [facility] Luis Enrique Draper MD - 04/10/2021 EXAMINATION: XR RIBS RIGHT WITH CHEST 3+ VIEWS 04/10/2021 7:20 PM HISTORY: ORDERING SYSTEM PROVIDED HISTORY: right rib and thoracic pain, TECHNOLOGIST PROVIDED HISTORY: Injury/Trauma Reason for exam: Rib pain Cancer History: no Surgery, RadiationHistory: no Encounter Type: Initial Mechanism of injury: Right rib pain after playing at park, sob with previous hx of covid. ORDERING SYSTEM PROVIDED DIAGNOSIS CODES: R07.81 Rib pain COMPARISON: None. FINDINGS: AP chest, AP and oblique views of the right ribs in total of five films are provided which demonstrate no definite fractures or dislocations of the right ribs. There are no definite lytic or sclerotic lesions are seen. The visualized right clavicle, right shoulder joint, other visualized osseous structures appear intact. Surrounding soft tissues appear normal. The heart size seems normal. The aorta has normal contour. The lungs otherwise are clear. There is no congestive heart failure or pneumothorax. IMPRESSION: 1. No definite fractures or dislocations of the right ribs. 2. No acute cardiopulmonary disease. KK/lab Workstation ID: [id number] [facility] Radiology Study observation (narrative) [facility] XR Ribs Right With Chest 3+ ViewsOrdered By: Luis Enrique Draper on 04-10-2021 [facility] Work Phone: COVID-19, MolecularOrdered B y: Cecilio Hatfield on 03-06-2021 SARS-CoV-2 (COVID-19) RdRp gene ERICK+probe Ql (Resp) Detected Abnormal Not Detected [facility] SARS-CoV-2 (COVID-19) RdRp g jerardo ERICK+probe Ql (Resp)Ordered By: Cecilio Hatfield on 03-06-2021 [facility] Interpretation and review of laboratory results Abnormal [facility] Vital Signs Date Time Vital Sign Value Performing Clinician Facility 08-17-2023 08:52-0500 Body height 160 cm Dhaval Marx MD Work Phone: [facility] 08-17-2023 08:52-0500 Body mass index (BMI) [Ratio] 38.09 kg/m2 Dhaval Marx MD Work Phone: [facility] 08-17-2023 08:52-0500 Body temperature 97.5 [degF] Dhaval Marx MD Work Phone: [facility] 08-17-2023 08:52-0500 Body weight 97.52 kg Dhaval Marx MD Work Phone: [facility] 08-17-2023 08:52-0500 Diastolic blood pressure 70 mm[Hg] Dhaval Marx MD Work Phone: [facility] 08-17-2023 08:52-0500 Heart rate 97 /min Dhaval Marx MD Work Phone: [facility] 08-17-2023 08:52-0500 SaO2% (BldA) [Mass fraction] 98 % Dhaval Marx MD Work Phone: [facility] 08-17-2023 08:52-0500 Systolic blood pressure 120 mm[Hg] Dhaval Marx MD Work Phone: [facility] 04-23-2023 11:49-0400 Heart rate 82 /min Zahida Timmis [facility] 04-23-2023 11:49-0400 SaO2% (BldA) [Mass fraction] 96 % Zahida Timmis [facility] 04-23-2023 11:49-0400 Respiratory rate 20 /min Zahida Timmis [facility] 04-23-2023 11:48-0400 Body temperature 97.88 [degF] Zahida Timmis [facility] 04-23-2023 11:48-0400 Blood Pressure Location Zahida Timmis [facility] 04-23-2023 11:48-0400 Diastolic blood pressure 84 mm[Hg] Zahida Timmis [facility] 04-23-2023 11:48-0400 Mean blood pressure 98 mm[Hg] Zahida Timmis [facility] 04-23-2023 11:48-0400 Systolic blood pressure 127 mm[Hg] Zahida Timmis [facility] 04-23-2023 10:57-0400 Heart rate 79 /min Zahida Timmis [facility] 04-23-2023 10:57-0400 SaO2% (BldA) [Mass fraction] 96 % Zahida Timmis [facility] 04-23-2023 10:57-0400 Blood Pressure Location Zahida Timmis [facility] 04-23-2023 10:57-0400 Diastolic blood pressure 77 mm[Hg] Zahida Timmis [facility] 04-23-2023 10:57-0400 Mean blood pressure 90 mm[Hg] Zahida Timmis [facility] 04-23-2023 10:57-0400 Systolic blood pressure 117 mm[Hg] Zahida Timmis [facility] 04-23-2023 10:57-0400 Respiratory rate 16 /min Zahida Timmis [facility] 04-23-2023 10:50-0400 Blood Pressure Location Zahida Timmis [facility] 04-23-2023 10:50-0400 Body temperature 97.88 [degF] Zahida Timmis [facility] 04-23-2023 10:50-0400 Diastolic blood pressure 69 mm[Hg] Zahida Timmis [facility] 04-23-2023 10:50-0400 Heart rate 65 /min Zahida Timmis [facility] 04-23-2023 10:50-0400 Mean blood pressure 87 mm[Hg] Zahida Timmis [facility] 04-23-2023 10:50-0400 Respiratory rate 20 /min Zahida Timmis [facility] 04-23-2023 10:50-0400 SaO2% (BldA) [Mass fraction] 97 % Zahida Timmis [facility] 04-23-2023 10:50-0400 Systolic blood pressure 124 mm[Hg] Zahida Timmis [facility] 04-23-2023 10:45-0400 Mean blood pressure 90 mm[Hg] Zahida Timmis [facility] 04-23-2023 10:45-0400 Respiratory rate 23 /min Zahida Timmis [facility] 04-23-2023 10:30-0400 Mean blood pressure 89 mm[Hg] Zahida Timmis [facility] 04-23-2023 10:30-0400 Respiratory rate 19 /min Zahida Timmis [facility] 04-23-2023 09:58-0400 Body temperature 98.06 [degF] Zahida Timmis [facility] 04-23-2023 09:55-0400 Respiratory rate 39 /min Zahida Timmis [facility] 04-23-2023 07:49-0400 Mean blood pressure 94 mm[Hg] Zahida Timmis [facility] 03-22-2023 01:00-0400 Body temperature 97.6 [degF] Nidhi Harjeet [employer] [facility] 03-22-2023 01:00-0400 Body weight 102.97 kg Nidhinabil Mauroy [facility] 03-22-2023 01:00-0400 Diastolic blood pressure 92 mm[Hg] Nidhinabil Mauroy [facility] 03-22-2023 01:00-0400 Heart rate 83 /min Nidhi Harjeet [facility] 03-22-2023 01:00-0400 Respiratory rate 18 /min Nidhinabil Mauroy [facility] 03-22-2023 01:00-0400 SaO2% (BldA) [Mass fraction] 97 % Nidhi Cosby [employer] 03-22-2023 01:00-0400 Systolic blood pressure 136 mm[Hg] Nidhi Cosby [employer] 11-07-2022 21:58-0400 Body height 157.5 cm Heaven Brown MD Work Phone: [facility] 11-07-2022 21:58-0400 Body mass index (BMI) [Ratio] 38.26 kg/m2 Heaven Brown MD Work Phone: [facility] 11-07-2022 21:58-0400 Body weight 94.89 kg Heaven Brown MD Work Phone: [facility] 11-07-2022 21:57-0400 Body temperature 98.91 [degF] Heaven Brown MD Work Phone: [facility] 11-07-2022 21:57-0400 Diastolic blood pressure 82 mm[Hg] Heaven Brown MD Work Phone: [facility] 11-07-2022 21:57-0400 Heart rate 89 /min Heaven Borwn MD Work Phone: [facility] 11-07-2022 21:57-0400 Respiratory rate 16 /min Heaven rBown MD Work Phone: [facility] 11-07-2022 21:57-0400 SaO2% (BldA) [Mass fraction] 97 % Heaven Brown MD Work Phone: [facility] 11-07-2022 21:57-0400 Systolic blood pressure 141 mm[Hg] Heaven Brown MD Work Phone: [facility] 07-14-2022 11:00-0500 Body height 160.02 cm Radha Sims Other [employer] Other 07-14-2022 11:00-0500 Body mass index (BMI) [Ratio] 36.84 kg/m2 Radha Sims Other [employer] Other 07-14-2022 11:00-0500 Body temperature 98.2 [degF] Radha Symond Other [employer] Other 07-14-2022 11:00-0500 Body weight 94.35 kg Radha Sims Other [employer] Other 07-14-2022 11:00-0500 Diastolic blood pressure 75 mm[Hg] Radha Sims Other [employer] Other 07-14-2022 11:00-0500 Respiratory rate 18 /min Radha Sims Other [employer] Other 07-14-2022 11:00-0500 SaO2% (BldA) [Mass fraction] 97 % Radha Sims Other [employer] Other 07-14-2022 11:00-0500 Systolic blood pressure 124 mm[Hg] Radha Symond Other [employer] Other 03-18-2022 18:50-0400 Body temperature 97.39 [degF] Hussain Bigony DO Work Phone: [facility] 03-18-2022 18:50-0400 Diastolic blood pressure 85 mm[Hg] Hussain Bigony DO Work Phone: [facility] 03-18-2022 18:50-0400 Heart rate 89 /min Hussain Bigony DO Work Phone: [facility] 09-06-2022 18:50-0400 Respiratory rate 16 /min Hussain Bigony DO Work Phone: [facility] 03-18-2022 18:50-0400 SaO2% (BldA) [Mass fraction] 97 % Hussain Bigony DO Work Phone: [facility] 03-18-2022 18:50-0400 Systolic blood pressure 120 mm[Hg] Hussain Bigony DO Work Phone: [facility] 11-15-2021 09:43-0400 Body temperature 97.3 [degF] Marlys Winter [employer] Work Phone: [facility] 11-15-2021 09:43-0400 Diastolic blood pressure 78 mm[Hg] Marlys Winter [employer] Work Phone: [facility] 11-15-2021 09:43-0400 Heart rate 99 /min Marlys Winter [employer] Work Phone: [facility] 11-15-2021 09:43-0400 Respiratory rate 16 /min Marlys Winter [employer] Work Phone: [facility] 11-15-2021 09:43-0400 SaO2% (BldA) [Mass fraction] 97 % Marlys Winter [employer] Work Phone: [facility] 11-15-2021 09:43-0400 Systolic blood pressure 114 mm[Hg] Marlys Winter [employer] Work Phone: [facility] 11-01-2021 10:25-0400 Body temperature 98.01 [degF] Marlys Winter [employer] Work Phone: [facility] 11-01-2021 10:25-0400 Diastolic blood pressure 73 mm[Hg] Marlys Winter [employer] Work Phone: [facility] 11-01-2021 10:25-0400 Heart rate 77 /min Marlys Winter [employer] Work Phone: [facility] 11-01-2021 10:25-0400 Respiratory rate 16 /min Marlys Winter [employer] Work Phone: [facility] 11-01-2021 10:25-0400 SaO2% (BldA) [Mass fraction] 97 % Marlys Winter [employer] Work Phone: [facility] 11-01-2021 10:25-0400 Systolic blood pressure 106 mm[Hg] Marlys Witner [employer] Work Phone: [facility] 09-06-2021 09:53-0500 Diastolic blood pressure 81 mm[Hg] Marlys Winter [employer] Work Phone: [facility] 09-06-2021 09:53-0500 Systolic blood pressure 123 mm[Hg] Marlys Winter [employer] Work Phone: [facility] 09-06-2021 09:51-0500 Body height 160 cm Marlys Winter [employer] Work Phone: [facility] 09-06-2021 09:51-0500 Body mass index (BMI) [Ratio] 34.9 kg/m2 Marlys Winter [employer] Work Phone: [facility] 09-06-2021 09:51-0500 Body temperature 98.71 [degF] Marlys Winter [employer] Work Phone: [facility] 09-06-2021 09:51-0500 Body weight 89.36 kg Marlys Winter [employer] Work Phone: [facility] 09-06-2021 09:51-0500 Heart rate 84 /min Marlys Winter [employer] Work Phone: [facility] 09-06-2021 09:51-0500 Respiratory rate 18 /min Marlys Winter [employer] Work Phone: [facility] 09-06-2021 09:51-0500 SaO2% (BldA) [Mass fraction] 97 % Marlys Winter [employer] Work Phone: [facility] 05-06-2021 17:35-0400 Diastolic blood pressure 93 mm[Hg] Imani Stephens [employer] Work Phone: [facility] 05-06-2021 17:35-0400 Systolic blood pressure 130 mm[Hg] Imani Stephens [employer] Work Phone: [facility] 05-06-2021 17:23-0400 Body height 157.5 cm Imani Stephens CNP Work Phone: [facility] 05-06-2021 17:23-0400 Body mass index (BMI) [Percentile] Per age and sex 97.12 % Imani Stephens [employer] Work Phone: [facility] 05-06-2021 17:23-0400 Body mass index (BMI) [Ratio] 34.75 kg/m2 Imani Stephens [employer] Work Phone: [facility] 05-06-2021 17:23-0400 Body temperature 97.59 [degF] Imani Stephens [employer] Work Phone: [facility] 05-06-2021 17:23-0400 Body weight 86.18 kg Imani Stephens [employer] Work Phone: [facility] 05-06-2021 17:23-0400 Heart rate 93 /min Imani Stephens [employer] Work Phone: [facility] 05-06-2021 17:23-0400 Respiratory rate 16 /min Imani Stephens [employer] Work Phone: [facility] 05-06-2021 17:23-0400 SaO2% (BldA) [Mass fraction] 97 % Imani Stephens [employer] Work Phone: [facility] 04-10-2021 18:33-0400 Body temperature 97.59 [degF] Alivia Bolañosoe [employer] Work Phone: [facility] 04-10-2021 18:33-0400 Diastolic blood pressure 85 mm[Hg] Alivia Cahoe [employer] Work Phone: [facility] 04-10-2021 18:33-0400 Heart rate 106 /min Alivia Cahoe [employer] Work Phone: [facility] 04-10-2021 18:33-0400 Respiratory rate 16 /min Alivia Cahoe [employer] Work Phone: [facility] 04-10-2021 18:33-0400 SaO2% (BldA) [Mass fraction] 98 % Alivia Slaughter [employer] Work Phone: [facility] 04-10-2021 18:33-0400 Systolic blood pressure 126 mm[Hg] Alivia Slaughter [employer] Work Phone: [facility] 03-06-2021 11:56-0400 Body height 160 cm Rupinder Bernens PA-C Work Phone: [facility] 03-06-2021 11:56-0400 Body mass index (BMI) [Percentile] Per age and sex 96.7 % Rupinder Bernens PA-C Work Phone: [facility] 03-06-2021 11:56-0400 Body mass index (BMI) [Ratio] 33.66 kg/m2 Rupinder Bernens PA-C Work Phone: [facility] 03-06-2021 11:56-0400 Body temperature 100.29 [degF] Rupinder Bernens PA-C Work Phone: [facility] 03-06-2021 11:56-0400 Body weight 86.18 kg Rupinder Bernens PA-C Work Phone: [facility] 03-06-2021 11:56-0400 Heart rate 104 /min Rupinder Bernens PA-C Work Phone: [facility] 03-06-2021 11:56-0400 Respiratory rate 16 /min Rupinder Bernens PA-C Work Phone: [facility] 03-06-2021 11:56-0400 SaO2% (BldA) [Mass fraction] 98 % Rupinder Bernens PA-C Work Phone: [facility] Encounters Encounter Date Encounter Type Care Provider Facility Start: 03-28-2024 End: 03-28-2024 ambulatory SHIMA S MICHAEL Not Available Start: 03-24-2024 End: 03-24-2024 ambulatory SHIMA S MICHAEL Not Available Start: 03-17-2024 End: 03-17-2024 ambulatory SHIMA S MICHAEL Not Available Start: 03-08-2024 End: 03-08-2024 ambulatory SHIMA S MICHAEL Not Available Start: 02-29-2024 End: 02-29-2024 ambulatory SHIMA S MICHAEL Not Available Start: 02-23-2024 End: 02-23-2024 ambulatory SHIMA S MICHAEL Not Available Start: 02-19-2024 End: 02-19-2024 ambulatory ZAHIDA JACOBS Not Available Start: 02-15-2024 End: 02-15-2024 ambulatory SHIMA S MICHAEL Not Available Start: 02-03-2024 End: 02-03-2024 ambulatory DHAVAL MARX Not Available Start: 02-02-2024 End: 02-02-2024 ambulatory SHIMA S MICHAEL Not Available Start: 01-18-2024 End: 01-18-2024 ambulatory SHIMA S MICHAEL Not Available Start: 01-07-2024 End: 01-07-2024 ambulatory SHIMA S MICHAEL Not Available Start: 12-30-2023 End: 12-30-2023 ambulatory SHIMA S MICHAEL Not Available Start: 12-03-2023 End: 12-03-2023 ambulatory DHAVAL MARX Not Available Start: 10-30-2023 End: 10-30-2023 ambulatory DHAVAL MARX Not Available Start: 09-09-2023 End: 09-09-2023 ambulatory LIZET PEOPLES Not Available Start: 08-31-2023 End: 08-31-2023 ambulatory ARIZMENDI MICHAEL Not Available Start: 08-24-2023 Refill Dhaval Wharton Work Phone: [facility] Comment on above: Obesity (BMI 30-39.9 ) Start: 08-17-2023 Yeyobofrancesca Marx MD Work Phone: [facility] Start: 08-17-2023 Yeyobofrancesca flowsbryan Marx MD Work Phone: [facility] Start: 08-17-2023 End: 08-17-2023 ambulatory DHAVAL MARX Not Available Start: 08-17-2023 End: 08-17-2023 Office outpatient visit 15 minutes Dhaval Marx MD Work Phone: [facility] Comment on above: ETD (Eustachian tube dysfunction), right (Primary Dx); Obesity (BMI 30-39.9) Start: 08-05-2023 End: 08-05-2023 ambulatory SHERISHAILA SPEARS Not Available Start: 07-01-2023 End: 07-01-2023 ambulatory DHAAVL FRANCISCO J Not Available Start: 05-29-2023 End: 05-29-2023 ambulatory ZAHIDA H TIMMIS Not Available Start: 04-23-2023 End: 04-23-2023 ambulatory Zahida H Timmis Facility:[facility] Start: 04-23-2023 End: 04-23-2023 Admission to same day surgery center Zahida H Timmis [facility] Start: 04-21-2023 End: 04-22-2023 ambulatory Zahida H Timmis Facility:[facility] [place] Start: 03-22-2023 Nidhi Cosby [facility] Start: 11-11-2022 End: 11-12-2022 ambulatory ARIZMENDI FAKENISHA Facility:[facility] [place] Start: 11-11-2022 End: 11-11-2022 Patient encounter procedure SHAIKH MICHAEL [facility] Start: 11-07-2022 End: 11-08-2022 Emergency department patient visit Heaven Brown MD Work Phone: [facility] Start: 07-14-2022 End: 07-14-2022 ambulatory Radha Sims Other [employer] Other Start: 07-14-2022 Office outpatient ne w 20 minutes Radha Sims [facility] Start: 06-25-2022 End: 06-29-2022 ambulatory VASU ANDERSON [facility] Start: 06-18-2022 End: 06-22-2022 ambulatory PHYSICIAN [facility] Start: 06-18-2022 End: 06-18-2022 ambulatory Dhaval Lock MD Work Phone: [facility] [facility] Comment on above: Chronic pain of righ t knee (Primary Dx) Start: 06-16-2022 End: 06-20-2022 ambulatory PHYSICIAN [facility] Start: 06-16-2022 End: 06-16-2022 ambulatory Dhaval Lock MD Work Phone: [facility] Comment on above: Chronic pain of righ t knee (Primary Dx) Start: 06-09-2022 End: 06-13-2022 ambulatory PHYSICIAN [facility] Start: 06-09-2022 End: 06-09-2022 ambulatory Dhaval Lock MD Work Phone: [facility] Comment on above: Chronic pain of righ t knee (Primary Dx) Start: 05-29-2022 End: 06-02-2022 ambulatory SEEMA GIL [facility] Start: 05-21-2022 End: 05-25-2022 ambulatory PHYSICIAN [facility] Start: 05-21-2022 End: 05-21-2022 ambulatory Dhaval Lock MD Work Phone: [facility] Comment on above: Chronic pain of righ t knee (Primary Dx) Start: 05-19-2022 End: 05-23-2022 ambulatory PROVIDER NOT IN SYSTEM [facility] Start: 05-19-2022 End: 05-19-2022 ambulatory Provider Not In System [facility] Comment on above: Right knee pain, uns pecified chronicity; Low back pain, unspecified back pain laterality, unspecified chronicity, unspecified whether sciatica present; Chronic pain of right knee Start: 05-14-2022 Transcribe Orders Dhaval Wharton Work Phone: [facility] Comment on above: Right knee pain, uns pecified chronicity (Primary Dx); Low back pain, unspecified back pain laterality, unspecified chronicity, unspecified whether sciatica present Start: 05-01-2022 End: 05-02-2022 ambulatory PROVIDER NOT IN SYSTEM [facility] Start: 03-18-2022 End: 03-18-2022 ambulatory PHYSICIAN NO [facility] Start: 03-18-2022 End: 03-18-2022 Office outpatient visit 15 minutes Hussain Stilesmica Work Phone: [facility] Comment on above: Dermatitis (Primary Dx) Start: 11-15-2021 End: 11-15-2021 ambulatory MARLYS WINTER [facility] Start: 11-15-2021 End: 11-15-2021 Office outpatient visit 15 minutes Marlys Winter CNP Work Phone: [facility] Comment on above: Poison christiana (Primary Dx) Start: 11-01-2021 End: 11-01-2021 ambulatory PHYSICIAN NO [facility] Start: 11-01-2021 End: 11-01-2021 Office outpatient visit 15 minutes Marlys Winter CNP Work Phone: [facility] Comment on above: Right non-suppurativ e otitis media (Primary Dx) Start: 09-06-2021 End: 09-06-2021 ambulatory PHYSICIAN NO [facility] Start: 09-06-2021 End: 09-06-2021 Office outpatient visit 15 minutes Marlys Winter CNP Work Phone: [facility] Comment on above: Recurrent acute supp urative otitis media of right ear without spontaneous rupture of tympanic membrane (Primary Dx) Start: 05-06-2021 End: 05-06-2021 ambulatory PHYSICIAN NO [facility] Start: 05-06-2021 End: 05-06-2021 Office outpatient visit 15 minutes Imani Stephens CNP Work Phone: [facility] Comment on above: Upper respiratory tr act infection, unspecified type (Primary Dx) Start: 04-10-2021 End: 04-10-2021 ambulatory PHYSICIAN NO [facility] Start: 04-10-2021 End: 04-10-2021 Office outpatient visit 15 minutes Alivia Slaughter PLATE GRINDER Work Phone: [facility] Comment on above: Rib pain (Primary Dx ); Upper respiratory tract infection, unspecified type Start: 03-06-2021 End: 03-06-2021 Office outpatient visit 15 minutes Rupinder Segura PA-C Work Phone: [facility] Comment on above: COVID-19 virus infec tion (Primary Dx); Encntr for obs for susp expsr to oth biolg agents ruled out; Cough; Loss of taste Start: 08-01-2019 End: 08-01-2019 ambulatory ROYCE VICK Facility:[facility] Procedures Date Procedure Procedure Detail Performing Clinician Start: 04-23-2023 Myringotomy and inse rtion of tympanic ventilation tube Zahida Timmis Start: 11-08-2022 Ct abdomen & pelvis w/o contrast material Telemate Lucio rBown MD Work Phone: Start: 11-07-2022 Gonadotropin chorion ic qualitative Telemate Lucio Brown MD Work Phone: Start: 11-07-2022 Urnls dip stick/tabl et rgnt auto w/o microscopy Telemate Lucio Brown MD Work Phone: Start: 03-06-2021 SARS-CoV-2 (COVID-19 ) RdRp gene [Presence] in Respiratory specimen by ERICK with probe detection Rupinder Segura PA-C Work Phone: Start: 08-01-2019 MED WITH BETA LACTAM CONTRAINDICATED ROYCE VICK Start: 08-01-2019 SURGICAL CASE REQUEST Zak VICK Myringotomy and inse rtion of tympanic ventilation tube Zahida Timmis Tonsillectomy and adenoidectomy Zahida Timmis Plan of Treatment Date Care Activity Detail Author Start: 08-11-2024 End: 08-11-2024 Patient encounter procedure 08/11/2024 9:30 AM EST Office Visit [facility] [address] [place] [phone] Sheri SpearsDO [address] [place] [address] [facility] Start: 06-13-2024 End: 06-13-2024 Patient encounter procedure 06/13/2024 9:40 AM EST Office Visit [facility] [address] [facility] [address] [place] [phone] Zahida Jacobs MD [address] [facility] [address] [place] [address] [facility] Start: 10-12-2023 End: 10-12-2023 Patient encounter procedure 10/12/2023 8:15 AM EDT Office Visit [facility] [address] [place] [address] Dhaval Marx MD [address] [place] [address] [facility] Start: 04-04-2023 Tetanus vaccination [facility] Start: 03-22-2023 PROBLEM PROBLEM [facility] Start: 03-22-2023 [facility] Start: 03-13-2023 Influenza vaccination [facility] Start: 08-04-2022 End: 08-04-2022 ambulatory 08/04/2022 Treatment Rehabilitation Dhaval Lock MD [address] [place] [address] [id number] Seema Gil, PT [facility] Start: 07-30-2022 End: 07-30-2022 ambulatory 07/30/2022 Treatment Rehabilitation Dhaval Lock MD [address] [place] [address], [place] [address] [facility] Start: 07-28-2022 End: 07-28-2022 ambulatory 07/28/2022 Treatment Rehabilitation Dhaval Lock MD [address] [facility]], [place] [address] Vasu Anderson [facility] Start: 07-23-2022 End: 07-23-2022 ambulatory 07/23/2022 Treatment Rehabilitation Dhaval Lock MD [address] [place] [address], [place] [address] Vasu Anderson [facility] Start: 07-21-2022 End: 07-21-2022 ambulatory 07/21/2022 Treatment Rehabilitation Dhaval Lock MD [address] [place] [address], [place] [address] Seema Gil, [facility] Start: 07-17-2022 End: 07-17-2022 ambulatory 07/17/2022 Treatment Rehabilitation Dhaval Lock MD [address] [place] [address], [place] [address] Seema Gil, [facility] Start: 07-15-2022 End: 07-15-2022 ambulatory 07/15/2022 Treatment Rehabilitation Dhaval Lock MD [address] [place] [address], [place] [address] Seema Gil, [facility] Start: 07-03-2022 End: 07-03-2022 ambulatory 07/03/2022 Treatment Rehabilitation Dhaval Lock MD [address] [place] [address], [place] [address] Seema Gil, [facility] Start: 06-30-2022 End: 06-30-2022 ambulatory 06/30/2022 Treatment Rehabilitation Dhaval Lock MD [address] [place] [address], [place] [address] Vasu Anderson [facility] Start: 06-27-2022 End: 06-27-2022 ambulatory 06/27/2022 Treatment Rehabilitation Dhaval Lock MD [address] [place] [address], [place] [address] Vasu Anderson [facility] Start: 06-25-2022 End: 06-25-2022 ambulatory 06/25/2022 Treatment Rehabilitation Dhaval Lock MD [address] [place] [address], [place] [address] Vasu Anderson [facility] Start: 06-23-2022 End: 06-23-2022 ambulatory 06/23/2022 Treatment Rehabilitation Dhaval Lock MD [address] [place] [address], [place] [address] Vasu Anderson [facility] Start: 06-18-2022 End: 06-18-2022 ambulatory 06/18/2022 Treatment Rehabilitation Dhaval Lock MD [address] [place] [address], [place] [address] Vasu Anderson [facility] Start: 06-18-2022 End: 06-18-2022 ambulatory 06/18/2022 Treatment Rehabilitation Dhaval Lock MD [address] [place] [address], [place] [address] Vasu Anderson [facility] Start: 06-16-2022 End: 06-16-2022 ambulatory 06/16/2022 Treatment Rehabilitation Dhaval Lock MD [address] [place] [address], [place] [address] Vasu Anderson [facility] Start: 06-12-2022 End: 06-12-2022 ambulatory 06/12/2022 Treatment Rehabilitation Dhaval Lock MD [address] [place] [address] Alan Amin [facility] Start: 06-09-2022 End: 06-09-2022 ambulatory 06/09/2022 Treatment Rehabilitation Dhaval Lock MD [address] [place] [address] Vasu Anderson [facility] Start: 06-03-2022 End: 06-03-2022 ambulatory 06/03/2022 Treatment Rehabilitation Dhaval Lock MD [address] [place] [address] Vasu Anderson [facility] Start: 05-21-2022 End: 05-21-2022 ambulatory 05/21/2022 Treatment Rehabilitation Dhaval Lock MD [address] [place] [id number] Vasu Anderson [facility] Start: 05-19-2022 End: 05-19-2022 ambulatory 05/19/2022 Evaluation Rehabilitation System, Provider Not In Alan Amin [facility] Start: 03-13-2022 Influenza vaccination [facility] Start: 01-09-2022 Influenza vaccination Sequential Influenza Vaccine (#1) [facility] Comment on above: Postponed from 03/13/2021 (Patient Ill T mike) Start: 03-13-2021 Influenza vaccination Sequential Influenza Vaccine (#1) [facility] Start: 11-17-2019 Hepatitis C screening [facility]atitis C Screening [facility] Start: 2017 Screening for Chlamydia trachomatis CHLAMYDIA SCREEN [facility] Start: 2016 HIV screening [facility] Start: 2013 COVID-19 Vaccine (1) COVID-19 Vaccine (1) [facility] Start: 2013 Depression screening using PHQ-9 (Patient Health Questionnaire 9) score [facility] Start: 2006 COVID-19 Vaccine (1) COVID-19 Vaccine (1) [facility] Start: 2004 History and physical examination, annual for health maintenance Wellness Visit [facility] Start: 05-19-2002 COVID-19 Vaccine (#1) COVID-19 Vaccine (#1) [facility] Start: 2001 Hepatitis C screening HEPATITIS C VIRUS SCREENING [facility] Start: 2001 Screening for Chlamydia trachomatis [facility] Patient Education Discussed with pt physical findings and diagnosis of sinus infectiontake medication as prescribedsupportive care; encourage rest, fluids, ibuprofen/tylenol for fever or discomfortsfollow up with PCP or return to clinic if treatment fails to improveif symptoms worsen or changes to go to EDall questions answeredpt agreed and voiced understanding [facility] tonsilectomy/adenoids [facility] Immunizations Immunization Date Immunization Notes Care Provider Kiana bailey 07-19-2020 influenza virus vaccine, unspecified formulation Heaven Brown MD Work Phone: [facility] Work Phone: Payers Date Payer Category Payer Private Health Insurance [id number] 2020 Unknown [facility] HMO/BOGGS CE PLUS/PILO/PILO PLUS [id number] 2020-Present [phone] [address] [place] [address] [id number] 2020 Unknown [id number] 2019 Unknown [id number] 2012 Unknown [employer]UEL[employer] PETERS/PREF/HMO/PPO [id number] 2012-Present [phone] [address] [place] [address] [id number] 2012 Unknown [id number] 1.13.385.2.7 .[id number] 2012 Unknown [id number] 2001 Unknown [id number] 2.16.840.1.194112.3.579.2.9 03 2001 Unknown [id number] 2.16.840.1.027104.3.579.2.9 03 2001 Unknown [id number] 2.16.840.1.843290.3.579.2.9 03 2001 Unknown [id number] 2.16.840.1.428747.3.579.2.9 03 2001 Unknown [id number] 2.16.840.1.191501.3.579.2.9 03 2001 Unknown [id number] 2.16.840.1.646698.3.579.2.9 03 2001 Unknown [id number] 2.16.840.1.876897.3.579.2.9 03 2001 Unknown [id number] 2.16.840.1.646749.3.579.2.9 03 2001 Unknown [id number] 2.16.840.1.365927.3.579.2.9 03 2001 Unknown [id number] 2.16.840.1.302026.3.579.2.9 03 2001 Unknown [id number] 2.16.840.1.343544.3.579.2.9 03 2001 Unknown [id number] 2.16.840.1.747238.3.579.2.9 03 2001 Unknown [id number] 2.16.840.1.833654.3.579.2.9 03 2001 Unknown [id number] 2.16.840.1.110306.3.579.2.9 03 2001 Unknown [id number] 2.16.840.1.838935.3.579.2.9 03 2001 Unknown [id number] 2.16.840.1.638639.3.579.2.7 27 2001 Unknown [id number] 2.16.840.1.583965.3.579.2.7 27 2001 Unknown [id number] 2.16.840.1.589619.3.579.2.7 27 2001 Unknown [id number] 2.16.840.1.617128.3.579.2.1 259 2001 Unknown [id number] 2.16.840.1.473534.3.579.2.1 259 2001 Unknown [id number] 2.16.840.1.865393.3.579.2.1 259 2001 Unknown [id number] 2.16.840.1.302214.3.579.2.1 259 2001 Unknown [id number] 2.16.840.1.050509.3.579.2.1 259 2001 Unknown [id number] 2.16.840.1.509249.3.579.2.1 259 2001 Unknown [id number] 2.16.840.1.309328.3.579.2.1 259 2001 Unknown [id number] 2.16.840.1.670885.3.579.2.1 259 2001 Unknown [id number] 2.16.840.1.300480.3.579.2.1 259 2001 Unknown [id number] 2.16.840.1.346661.3.579.2.1 259 2001 Unknown [id number] 2.16.840.1.927821.3.579.2.1 259 2001 Unknown [id number] 2.16.840.1.562929.3.579.2.1 259 2001 Unknown [id number] 2.16.840.1.517848.3.579.2.1 259 2001 Unknown [id number] 2.16.840.1.485723.3.579.2.1 259 2001 Unknown [id number] 2.16.840.1.920683.3.579.2.1 259 2001 Unknown [id number] 2.16.840.1.324589.3.579.2.1 259 2001 Unknown [id number] 2.16.840.1.227045.3.579.2.1 259 2001 Unknown [id number] 2.16.840.1.510678.3.579.2.1 259 2001 Unknown [id number] 2.16.840.1.491458.3.579.2.1 259 2001 Unknown [id number] 2.16.840.1.391191.3.579.2.1 259 2001 Unknown [id number] 2.16.840.1.815635.3.579.2.1 259 2001 Unknown [id number] 2.16.840.1.320170.3.579.2.1 259 Unknown [id number] 2.16.840.1.647850.3.579.2.7 32 Social History Date Type Detail Facility Start: 03-05-2021 End: 12-23-2022 Tobacco smoking status [facility] Never smoked tobacco [facility] Start: 03-05-2021 End: 12-23-2022 Tobacco use and exposure Smokeless tobacco non-user [facility] Start: 2001 Sex Assigned At Not on file O [facility] Start: 08-27-2021 End: 11-07-2022 Exposure to SARS-CoV-2 (event) Not sure [facility] Start: 07-29-2023 End: 08-17-2023 Sex Assigned At [facility] Tobacco smoking status No Smokin g Status Entered [facility] Start: 08-05-2023 End: 08-17-2023 Alcohol intake Ex-drinker (finding) [facility] Start: 07-29-2023 End: 08-17-2023 History of Social function [facility] Start: 07-17-2023 Alcohol Comment caffeine intake : no ne [facility] Medical Equipment Procedure Code Equipment Code Equipment Original Text Equi pment Identifier Dates Procedure Implant ([id number]) Clinical Notes 03-06-2021 to 08-17-2023 Dhaval Marx MD - 08/17/2023 9:08 AM Kelsea Marx MD - 08/17/2023 9:08 AM Kelsea Marx MD - 08/17/2023 8:45 AM Sheila Glasgow RN - 11/08/2022 12:11 AM EDT Note Date & Type Note Facility 08-17-2023 History of Present illness Narrative Associated Problem(s): Obesity (BMI 30-39.9) Patient doing well with adipex and lost 9 pounds in 2 months. Tolerating well with only mild dry mouth. Continue with dietary changes and less calories. Need to limit snacking and smaller portions. Continue healthier choices. Need regular aerobic exercise 30 minutes at a time 5-6 days a week. Refill for another month. OARRS reviewed. Continue meds as prescribed. If develop new or worsening symptoms contact office. Associated Problem(s): ETD (Eustachian tube dysfunction), right Symptoms improved and use flonase PRN. Subjective Patient ID: Anum Cloud is a 22 y.o. female who presents for Follow-up (1m adipex). Follow up weight and eustachian tube dysfunction. Patient feels well today. Taking adipex and weight down 9 pounds since starting. Tolerating medication without side effects except mild dry mouth. Not as hungry with medication. Smaller portions and not snacking. Increased fruits and vegetables. Tries to limit total daily calories. Increased activity and walking almost daily. Goes to the gym several days a week. Following with ENT and sinus symptoms doing well. No congestion or rhinorrhea. Ears not plugged or popping. Using flonase PRN and helps. Review of Systems Respiratory: Negative for cough, shortness of breath and wheezing. Cardiovascular: Negative for chest pain and palpitations. Gastrointestinal: Negative for abdominal pain, diarrhea, nausea and vomiting. Genitourinary: Negative for dysuria. Objective Physical Exam Constitutional: General: She is not in acute distress. Appearance: Normal appearance. HENT: Head: Normocephalic. Right Ear: Tympanic membrane normal. Left Ear: Tympanic membrane normal. Eyes: Extraocular Movements: Extraocular movements intact. Pupils: Pupils are equal, round, and reactive to light. Cardiovascular: Rate and Rhythm: Normal rate and regular rhythm. Heart sounds: No murmur heard. No friction rub. No gallop. Pulmonary: Effort: Pulmonary effort is normal. Breath sounds: Normal breath sounds. No wheezing, rhonchi or rales. Abdominal: General: Bowel sounds are normal. There is no distension. Palpations: Abdomen is soft. Tenderness: There is no abdominal tenderness. There is no guarding or rebound. Musculoskeletal: Cervical back: Neck supple. Right lower leg: No edema. Left lower leg: No edema. Neurological: Mental Status: She is alert. Assessment/Plan Problem List Items Addressed This Visit ETD (Eustachian tube dysfunction), right - Primary Symptoms improved and use flonase PRN. Obesity (BMI 30-39.9) Patient doing well with adipex and lost 9 pounds in 2 months. Tolerating well with only mild dry mouth. Continue with dietary changes and less calories. Need to limit snacking and smaller portions. Continue healthier choices. Need regular aerobic exercise 30 minutes at a time 5-6 days a week. Refill for another month. OARRS reviewed. Continue meds as prescribed. If develop new or worsening symptoms contact office. documented in this encounter [place] [address]-12-2023 Hospital Discharge instructions Patient Education 04/23/2023 10:39:09 Post Op Patient Instructions - FT (CUSTOM) Follow Up Care 02/17/2023 09:06:22 With:Zahida Jacobs Address:Unknown When: Unknown Comments:One month [facility] 04-09-2023 Note [id number]:127 [facility] 04-08-2023 Note [id number]:127 [facility] 03-22-2023 History general Narrative - Reported No medical history recorded. Gynecological HistoryNo gynecological history recorded. Obstetrics History GPAL:G 0 P 0 0 0 0 [employer] 11-08-2022 Emergency department Note Returned from [facility] 11-08-2022 Emergency department Note Returned from CT To CT Scan History Chief Complaint Patient presents with Abdominal Pain Lower abdominal pain and nausea x 2 days, pt denies vomiting or diarrhea 21yo f with pmhx as below presenting with lower abdominal pain for the past couple of days. No associated n/v/d, no hematuria, no dysuria, no vaginal bleeding or discharge. Pain moderate, sharp, worse with walking and palpation. No fever/chills. The history is provided by the patient. No past medical history on file. No past surgical history on file. History reviewed. No pertinent family history. Social History Tobacco Use Smoking status: Never Smokeless tobacco: Never Review of Systems Constitutional: Negative for chills and fever. HENT: Negative for congestion and dental problem. Eyes: Negative for pain and visual disturbance. Respiratory: Negative for cough and shortness of breath. Cardiovascular: Negative for chest pain, palpitations and leg swelling. Gastrointestinal: Positive for abdominal pain. Negative for diarrhea, nausea and vomiting. Genitourinary: Negative for dysuria, flank pain, vaginal bleeding and vaginal discharge. Musculoskeletal: Negative for arthralgias and back pain. Skin: Negative for color change and rash. Neurological: Negative for dizziness and headaches. All other systems reviewed and are negative. Physical Exam BP 141/82 Pulse 89 Temp 98.9 F (37.2 C) (Oral) Resp 16 Ht 1.575 m (5' 2 ) Wt 94.9 kg (209 lb 3.2 oz) SpO2 97% BMI 38.26 kg/m Smoking Status Never Physical Exam Vitals and nursing note reviewed. Constitutional: General: She is not in acute distress. Appearance: Normal appearance. She is not ill-appearing, toxic-appearing or diaphoretic. HENT: Head: Normocephalic and atraumatic. Right Ear: External ear normal. Left Ear: External ear normal. Nose: Nose normal. Mouth/Throat: Pharynx: No oropharyngeal exudate. Eyes: General: No scleral icterus. Conjunctiva/sclera: Conjunctivae normal. Pupils: Pupils are equal, round, and reactive to light. Cardiovascular: Rate and Rhythm: Normal rate and regular rhythm. Pulses: Normal pulses. Heart sounds: Normal heart sounds. Pulmonary: Effort: Pulmonary effort is normal. No respiratory distress. Breath sounds: Normal breath sounds. No stridor. No wheezing or rales. Abdominal: General: Abdomen is flat. Bowel sounds are normal. There is no distension. Palpations: Abdomen is soft. Tenderness: There is abdominal tenderness in the right lower quadrant. There is no guarding. Musculoskeletal: General: No tenderness. Normal range of motion. Cervical back: Normal range of motion and neck supple. No rigidity. Skin: General: Skin is warm and dry. Capillary Refill: Capillary refill takes less than 2 seconds. Findings: No erythema or rash. Neurological: General: No focal deficit present. Mental Status: She is alert and oriented to person, place, and time. Mental status is at baseline. Gait: Gait normal. Psychiatric: Mood and Affect: Mood normal. Behavior: Behavior normal. ED Course Lab Results HCG QUALITATIVE, URINE (Final result) Component (Lab Inquiry) Collection Time Result Time HCG, QUALITATIVE, URINE 11/07/22 23:48:00 11/07/22 23:53:00 Negative Final result Contains abnormal data URINE DIPSTICK WITH REFLEX MICROSCOPY (Final result) Component (Lab Inquiry) Collection Time Result Time TYPE, URINE COLOR, URINE APPEARANCE, URINE Specific [place], Urine PH URINE LEUKOCYTE ESTERASE, URINE NITRITES, URINE PROTEIN, URINE GLUCOSE, URINE KETONES, URINE 11/07/22 23:04:00 11/07/22 23:12:00 Clean catch YELLOW CLEAR 1.025 5.0 Trace Abnormal Negative see below Unable to report Urine... Normal Negative Collection Time Result Time UROBILINOGEN, URINE BILIRUBIN, URINE BLOOD, URINE WBC, URINE RBC, URINE SQUAMOUS EPITHELIAL CELLS, URINE 11/07/22 23:04:00 11/07/22 23:12:00 Normal Negative Trace Abnormal 0-5 0-2 1+ Abnormal Final result Imaging Results CT ABDOMEN/PELVIS WITHOUT CONTRAST (Final result) Result time 11/08/22 00:00:00 Final result by Chucho Gale MD (11/08/22 00:00:00) Impression: IMPRESSION: 1. No specific etiology identified to explain the patient's abdominal pain. 2. There are a few nodules in the lung bases measuring up to 0.5 cm, likely postinfectious or inflammatory in a patient of this age. 3. Normal appendix. 4. Urinary bladder wall thickening. Please correlate with urinalysis for infection. Dictated Physician: Monica Gale Dictated On: 11/08/2022 01:15 Interpreted By: Monica Gale Transcribed By: Monica Gale Signed By: Monica Gale Signed On: 11/08/2022 01:21 Narrative: EXAMINATION: CT ABDOMEN/PELVIS WITHOUT CONTRAST, 11/08/2022 12:00 AM EDT HISTORY: DIAGNOSES: -lower abdominal pain COMPARISON: None. TECHNIQUE: CT scan of the abdomen and pelvis was performed without IV contrast. CT dose reduction technique was used, including Automated Exposure Control. FINDINGS: There is a 0.5 cm nodule in the left lower lobe (series 2, image 2). There is a 0.3 cm nodule in the right middle lobe (series 2, image 14). There is a 0.4 cm nodule in the right lower lobe (series 2, image 4). Abdomen: Please note that the sensitivity for detection of focal lesions or vascular disease is markedly reduced without intravenous contrast. The liver and spleen are unremarkable. There is no intra or extrahepatic biliary duct dilatation. The gallbladder is unremarkable. The pancreas, adrenal glands, kidneys, and bowel loops, including the appendix, are unremarkable. There is no mesenteric or retroperitoneal lymphadenopathy. Pelvis: The bladder demonstrates mild wall thickening. The rectum is unremarkable. There is no iliac or inguinal lymphadenopathy. The uterus is present. The ovaries appear within normal limits by CT. Bone windows show no aggressive osseous lesions. Procedures Medical Decision Making Ddx includes but not limited to acute appendicitis, diverticulitis, perforated viscus, uti, pancreatitis, acute cholecystitis, biliary cholic. MDM: Pt nontoxic, No acute abdomen, No increased work of breathing, no hypoxia. Labs, images, and nursing notes reviewed. No emergent/urgent conditions found on exam, labs, and imaging. Emergent/urgent conditions needing hospitalization considered. Acute cystitis without hematuria: acute illness or injury Amount and/or Complexity of Data Reviewed Labs: ordered. Decision-making details documented in ED Course. Radiology: ordered and independent interpretation performed. Decision-making details documented in ED Course. Discussion of management or test interpretation with external provider(s): [place] PO for pain. Keflex PO for cystitis. Risk Prescription drug management. Discharged with Rx for Keflex and PCP followup. Heaven Brown MD 11/08/22132 documented in this encounter [facility] Work Phone: 11-07-2022 Emergency department Note To CT Scan [facility] Work Phone: 11-07-2022 Physician Emergency department Note History Chief Complaint Patient presents with Abdominal Pain Lower abdominal pain and nausea x 2 days, pt denies vomiting or diarrhea 21yo f with pmhx as below presenting with lower abdominal pain for the past couple of days. No associated n/v/d, no hematuria, no dysuria, no vaginal bleeding or discharge. Pain moderate, sharp, worse with walking and palpation. No fever/chills. The history is provided by the patient. No past medical history on file. No past surgical history on file. History reviewed. No pertinent family history. Social History Tobacco Use Smoking status: Never Smokeless tobacco: Never Review of Systems Constitutional: Negative for chills and fever. HENT: Negative for congestion and dental problem. Eyes: Negative for pain and visual disturbance. Respiratory: Negative for cough and shortness of breath. Cardiovascular: Negative for chest pain, palpitations and leg swelling. Gastrointestinal: Positive for abdominal pain. Negative for diarrhea, nausea and vomiting. Genitourinary: Negative for dysuria, flank pain, vaginal bleeding and vaginal discharge. Musculoskeletal: Negative for arthralgias and back pain. Skin: Negative for color change and rash. Neurological: Negative for dizziness and headaches. All other systems reviewed and are negative. Physical Exam BP 141/82 Pulse 89 Temp 98.9 F (37.2 C) (Oral) Resp 16 Ht 1.575 m (5' 2 ) Wt 94.9 kg (209 lb 3.2 oz) SpO2 97% BMI 38.26 kg/m Smoking Status Never Physical Exam Vitals and nursing note reviewed. Constitutional: General: She is not in acute distress. Appearance: Normal appearance. She is not ill-appearing, toxic-appearing or diaphoretic. HENT: Head: Normocephalic and atraumatic. Right Ear: External ear normal. Left Ear: External ear normal. Nose: Nose normal. Mouth/Throat: Pharynx: No oropharyngeal exudate. Eyes: General: No scleral icterus. Conjunctiva/sclera: Conjunctivae normal. Pupils: Pupils are equal, round, and reactive to light. Cardiovascular: Rate and Rhythm: Normal rate and regular rhythm. Pulses: Normal pulses. Heart sounds: Normal heart sounds. Pulmonary: Effort: Pulmonary effort is normal. No respiratory distress. Breath sounds: Normal breath sounds. No stridor. No wheezing or rales. Abdominal: General: Abdomen is flat. Bowel sounds are normal. There is no distension. Palpations: Abdomen is soft. Tenderness: There is abdominal tenderness in the right lower quadrant. There is no guarding. Musculoskeletal: General: No tenderness. Normal range of motion. Cervical back: Normal range of motion and neck supple. No rigidity. Skin: General: Skin is warm and dry. Capillary Refill: Capillary refill takes less than 2 seconds. Findings: No erythema or rash. Neurological: General: No focal deficit present. Mental Status: She is alert and oriented to person, place, and time. Mental status is at baseline. Gait: Gait normal. Psychiatric: Mood and Affect: Mood normal. Behavior: Behavior normal. ED Course Lab Results HCG QUALITATIVE, URINE (Final result) Component (Lab Inquiry) Collection Time Result Time HCG, QUALITATIVE, URINE 11/07/22 23:48:00 11/07/22 23:53:00 Negative Final result Contains abnormal data URINE DIPSTICK WITH REFLEX MICROSCOPY (Final result) Component (Lab Inquiry) Collection Time Result Time TYPE, URINE COLOR, URINE APPEARANCE, URINE Specific [place], Urine PH URINE LEUKOCYTE ESTERASE, URINE NITRITES, URINE PROTEIN, URINE GLUCOSE, URINE KETONES, URINE 11/07/22 23:04:00 11/07/22 23:12:00 Clean catch YELLOW CLEAR 1.025 5.0 Trace Abnormal Negative see below Unable to report Urine... Normal Negative Collection Time Result Time UROBILINOGEN, URINE BILIRUBIN, URINE BLOOD, URINE WBC, URINE RBC, URINE SQUAMOUS EPITHELIAL CELLS, URINE 11/07/22 23:04:00 11/07/22 23:12:00 Normal Negative Trace Abnormal 0-5 0-2 1+ Abnormal Final result Imaging Results CT ABDOMEN/PELVIS WITHOUT CONTRAST (Final result) Result time 11/08/22 00:00:00 Final result by Chucho Gale MD (11/08/22 00:00:00) Impression: IMPRESSION: 1. No specific etiology identified to explain the patient's abdominal pain. 2. There are a few nodules in the lung bases measuring up to 0.5 cm, likely postinfectious or inflammatory in a patient of this age. 3. Normal appendix. 4. Urinary bladder wall thickening. Please correlate with urinalysis for infection. Dictated Physician: Monica Gale Dictated On: 11/08/2022 01:15 Interpreted By: Monica Gale Transcribed By: Monica Gale Signed By: Monica Gale Signed On: 11/08/2022 01:21 Narrative: EXAMINATION: CT ABDOMEN/PELVIS WITHOUT CONTRAST, 11/08/2022 12:00 AM EDT HISTORY: DIAGNOSES: -lower abdominal pain COMPARISON: None. TECHNIQUE: CT scan of the abdomen and pelvis was performed without IV contrast. CT dose reduction technique was used, including Automated Exposure Control. FINDINGS: There is a 0.5 cm nodule in the left lower lobe (series 2, image 2). There is a 0.3 cm nodule in the right middle lobe (series 2, image 14). There is a 0.4 cm nodule in the right lower lobe (series 2, image 4). Abdomen: Please note that the sensitivity for detection of focal lesions or vascular disease is markedly reduced without intravenous contrast. The liver and spleen are unremarkable. There is no intra or extrahepatic biliary duct dilatation. The gallbladder is unremarkable. The pancreas, adrenal glands, kidneys, and bowel loops, including the appendix, are unremarkable. There is no mesenteric or retroperitoneal lymphadenopathy. Pelvis: The bladder demonstrates mild wall thickening. The rectum is unremarkable. There is no iliac or inguinal lymphadenopathy. The uterus is present. The ovaries appear within normal limits by CT. Bone windows show no aggressive osseous lesions. Procedures Medical Decision Making Ddx includes but not limited to acute appendicitis, diverticulitis, perforated viscus, uti, pancreatitis, acute cholecystitis, biliary cholic. MDM: Pt nontoxic, No acute abdomen, No increased work of breathing, no hypoxia. Labs, images, and nursing notes reviewed. No emergent/urgent conditions found on exam, labs, and imaging. Emergent/urgent conditions needing hospitalization considered. Acute cystitis without hematuria: acute illness or injury Amount and/or Complexity of Data Reviewed Labs: ordered. Decision-making details documented in ED Course. Radiology: ordered and independent interpretation performed. Decision-making details documented in ED Course. Discussion of management or test interpretation with external provider(s): [place] PO for pain. Keflex PO for cystitis. Risk Prescription drug management. Discharged with Rx for Keflex and PCP followup. Heaven Brown MD 11/08/22132 [facility] Work Phone: 07-14-2022 Evaluation note Encounter Date Diagnosis Assessment Notes Jul, Contact with and (suspected) exposure to other viral communicable diseases (ICD-10 - Z20.828) Jul, Acute sinusitis, recurrence not specified, unspecified location (ICD-10 - J01.90) Sinusitis home care material was printed Drink plenty fluids, get plenty of rest. Take the clarithromycin as prescribed until gone. Take the prednisone as prescribed until gone. Use the Flonase inhaler as prescribed until your symptoms improve. Take Tylenol or Motrin for aches pains or fevers. Follow-up with your family physician if no improvement in 2 to 3 days. [employer] Other 11-07-2022 History of Present illness Narrative* Alan Amin, PT - 05/19/2022 12:15 PM EST [facility] Evaluation Today's Date 05/19/2022 Patient Name: Anum Cloud Date of : 2000 Case Name: PT- right knee Functional Diagnosis: 1. Right knee pain, unspecified chronicity 2. Low back pain, unspecified back pain laterality, unspecified chronicity, unspecified whether sciatica present 3. Chronic pain of right knee Clinical Information: Subjective Referring Diagnosis: right knee pain and lbp History of Present Illness Date of Onset: 05/19/2021 Contemporary Medical History: She injured herself while playing volley ball. With a fx of the fibula and 5th metatarsal Her leg will fall asleep on the right side She is also getting cramps in the night- in the knee Subjective History: She stated she played volley ball, basketball and softball in high school She stated that the hiking for her classes have been bothering- mainly with elevation changes Previous Imaging: X-ray Pain Scale Average Pain: 5/10 Pain at highest: 8/10 Aggravating factors: going up and down hills Easing factors: icing Personal Goals: To be able to hike without pain Functional Mobility Status Functional Limitations: limited mobility Current Activity Level: very active Premorbid Activity Level: very active Social Support: Patient lives alone. Latter Day, social, or cultural considerations to be made aware of before starting treatment: No Home Environment Current Home Environment: Setup: multi-level house Sleep Assessment Sleep disturbance: Sleep Disturbance Red Flags: None Comments: Barriers to Care: None Fall risk screening Fallen 2 or more times in the last 12 months: No Injured as a result of a fall in the last 12 months: No Latter Day, social, or cultural considerations to be made aware of before starting treatment: No Knee Right Knee Tenderness: medial joint line, patellar tendon, lateral joint line and tibial tubercle Range of Motion: Right rom functional limits: 145 popliteal. Flexion Active: 122 Extension Active: 0 Muscle Strength: Flexion: 4- (pain with flexion and extension) Extension: 4- Special Tests Roxanna (Medial): Negative Roxanna (Lateral): Negative Stress Test (Varus): Negative Stress Test (Valgus): Negative Maria Luisa: Negative Anterior Drawer: Negative Posterior Drawer: Negative Patellar Femoral Grind: Positive Left Knee Range of Motion: Left rom functional limits: 156 left popliteal. 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 Notes visit #1 12:20-1 Vitals right knee pain Therapeutic Exercise (53901) Intervention HEP- hamstring stretch, quad sets and heel slides Parameters taped patellar tendon Intervention work on strengthening and alignement and balance Parameters graston PT Treatment Times Therex Total Time 10 Direct Treatment Time 10 Total Treatment Time 10 Treatment Plan: Frequency of Visits: twice per week Duration: 6 weeks Interventions: Therapeutic Exercise (29619), Neuromuscular Re-Education (98640), Manual Therapy (20239), and Therapeutic/ Functional Activities (85744) Rehab Potential: good Goals: Physical Therapy Ortho Goals: MOBILITY: Patient will be able to ambulate on uneven surfaces x 4 hours duringa class without difficulty in 6 weeks. CHANGING MAINTAINING POSITON: Patient will be able to change position in bed without pain or difficulty in 4 weeks IMPAIRMENT: Patient will demonstrate improved postural awareness with lifting techinques and elevation changesin PT sessions to facilitate mechanical alignment and function in 4 weeks. IMPAIRMENT: Improve pain from 8/10 to 1/10 during hiking with class in 6 weeks IMPAIRMENT: Improve MMT of Right Knee from 4-/5 to 4/5 in 6 weeks IMPAIRMENT: Improve AROM of Right Knee from 122 degrees to 130 degrees in 6 weeks. OTHER: Patient will be able to improve SLS on Bilateral while standing on the flat side of the BOSUwith movement in order to be able to walk on uneven ground in 6 OTHER: Patient will be able to properly demonstrate independence with HEP after each session. Patient Education provided: Following the evaluation and extensive ptient education regarding diagnosis, prognosis, and treatment goals, the patient actively participated in the creation of the current goals and agrees to the current treatment plan. Pt was educated on a HEP to be performed at home to aide in achieving the pt's goals. All exercises will include proper posture and alignment to makethem safe. Pt was also educated on safety precautions and modifications needed to perform the exercise/therapeutic intervention. The patient performed the exercises/therapeutic exercises in the therapy session prior to performing at home. Clinical Impression: Pt presented with increased pain with right knee pain and swelling. She demonstrated increased pain,decreased ROM, strength and balance. These deficits make it difficult for her to hike in her natural resources classes and sleep. It is recommended that she receive skilled physical therapy to be able to perform activities that are required for school and perform ADLs and functional mobility This PT evaluation is classified as CPT Code 82769 low complexity. This patient presents with no complicating personal factors or co-morbidities. This evaluation includes examination of body systems using standardized tests and measures addressing 1-2 elements from any of the following including body structures and functions, activity limitations, and/or participation limitations. This patient's clinical presentation is stable and/or uncomplicated and requires clinical decision making of low complexity using standardized patient assessment instrument and/or measurable assessment of functionaloutcome. Alan Amin PT STATE LICENSE, [id number] documented in this [id number] History of Present illness Narrative* Hussain Pelaez, - 03/18/2022 7:15 PM EDT Images from the original note were not included. Assessment: Dermatitis [L30.9] Diagnoses and all orders for this visit: Dermatitis Other orders - predniSONE (DELTASONE) 20 MG tablet; Take 2 (two) tablets (40 mg total) by mouth daily for 7 days. - fluocinonide 0.1 % Crea; Apply 1 application topically 3 (three) times a day as needed . Plan: Dermatitis uncertain cause. New lesions seem to be appearing will start on oral therapy. Return to clinic if no improvement in 48 hours. Subjective: Patient ID: Anum High is a 21 y.o. female. 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 Previous large reactions to poison christiana. Reports that heat makes it worse Rash This is a new problem. The current episode started 1 to 4 weeks ago. The affected locations includethe face, left lower leg, right lower leg, left upper leg and left arm. The rash is characterized by redness, itchiness, scaling and burning. It is unknown if there was an exposure to a precipitant. Pertinent negatives include no congestion, cough, diarrhea, fatigue, fever, joint pain, rhinorrhea, shortness of breath, sore throat or vomiting. Treatments tried: had cream from home but didn't seem to help, thinks it was triamcinolone. The treatment provided mild relief. There is no history of asthma or eczema. History reviewed. No pertinent past medical history. Past Surgical History: Procedure Laterality Date ADENOIDECTOMY ADENOIDECTOMY AND BILATERAL EAR TUBES TONSILLECTOMY Family History Adopted: Yes Review of Systems Constitutional: Negative for chills, fatigue and fever. HENT: Negative for congestion, rhinorrhea and sore throat. Eyes: Negative for discharge and itching. Respiratory: Negative for cough and shortness of breath. Gastrointestinal: Negative for diarrhea and vomiting. Musculoskeletal: Negative for joint pain. Skin: Positive for rash. Objective: BP 120/85 Pulse 89 Temp 97.4 F (36.3 C) (Temporal) Resp 16 SpO2 97% Physical Exam Vitals and nursing note reviewed. Constitutional: Appearance: Normal appearance. HENT: Mouth/Throat: Mouth: Mucous membranes are moist. Pharynx: Oropharynx is clear. Cardiovascular: Rate and Rhythm: Normal rate and regular rhythm. Heart sounds: Normal heart sounds. Pulmonary: Effort: Pulmonary effort is normal. Breath sounds: Normal breath sounds. Skin: Findings: Rash present. Rash is macular and vesicular. Rash is not crusting, nodular, purpuric, scaling or urticarial. Neurological: Mental Status: She is alert. documented in this [id number] History of Present illness Narrative* Marlys Winter CNP - 11/15/2021 9:47 AM EDT Images from the original note were not included. PATIENT NAME: Anum Cloud [facility] [address] [facility] [place] [address] : 2000 DATE OF VISIT: 11/15/2021 #: [id number] PROVIDER: Marlys Winter CNP Chief Complaint Patient presents with Poison Christiana On left arm and hand has had X 4 days. SUBJECTIVE 20 y.o. female presents Poison Christiana (On left arm and hand has had X 4 days.) Rash This is a new problem. The current episode started in the past 7 days. The problem has been waxing and waning since onset. The affected locations include the left arm. The rash is characterized by redness, blistering and itchiness. She was exposed to plant contact. Pertinent negatives include no anorexia, congestion, cough, diarrhea, eye pain, facial edema, fatigue, fever, joint pain, nail changes, rhinorrhea, shortness of breath, sore throat or vomiting. Past treatments include antihistamine and anti-itch cream. The treatment provided mild relief. There is no history of allergies, asthma, eczema or varicella. MEDICAL ISSUES History reviewed. No pertinent past medical history. Patient Active Problem List Diagnosis COVID-19 SOCIAL HISTORY Social History Socioeconomic History Marital status: Single Tobacco Use Smoking status: Never Smoker Smokeless tobacco: Never Used Vaping Use Vaping Use: Never used FAMILY HISTORY Family History Adopted: Yes REVIEW OF SYSTEMS Review of Systems Constitutional: Negative. Negative for activity change, appetite change, fatigue and fever. HENT: Negative. Negative for congestion, ear discharge, ear pain, postnasal drip, rhinorrhea, sinuspressure, sinus pain, sneezing, sore throat and trouble swallowing. Eyes: Negative. Negative for pain, discharge, redness and itching. Respiratory: Negative. Negative for cough, chest tightness, shortness of breath, wheezing and stridor. Cardiovascular: Negative. Gastrointestinal: Negative. Negative for abdominal pain, anorexia, constipation, diarrhea, nausea and vomiting. Endocrine: Negative. Genitourinary: Negative. Negative for decreased urine volume, difficulty urinating, flank pain, frequency, hematuria and urgency. Musculoskeletal: Negative. Negative for arthralgias, back pain, joint pain and myalgias. Skin: Positive for rash. Negative for color change, nail changes and wound. Allergic/Immunologic: Negative. Negative for environmental allergies, food allergies and immunocompromised state. Neurological: Negative. Negative for dizziness, light-headedness and headaches. Hematological: Negative. Psychiatric/Behavioral: Negative. All other systems reviewed and are negative. MEDICATIONS PRIOR TO VISIT Current Outpatient Medications on File Prior to Visit Medication Sig Dispense Refill aspirin 81 MG EC tablet Take 81 mg by mouth 2 (two) times a day . azithromycin (ZITHROMAX) 250 MG tablet Take 2 tablets orally today then 1 tablet once a day for 4 days . (Patient not taking: Reported on 11/15/2021 .) 6 tablet 0 vjpatejbffhiixu-ceivrepWWDVvpyo-PB 2-30-10 mg/5 mL syrup Take 10 mL by mouth 4 (four) times a day as needed . (Patient not taking: No sig reported) 120 mL 0 fluticasone propionate (FLONASE) 50 mcg/actuation nasal spray Instill 2 (two) sprays into each nostril daily for 14 days . 16 g 0 methylPREDNISolone (MEDROL DOSEPACK) 4 mg tablet follow package directions . (Patient not taking: No sig reported) 21 tablet 0 norgestimate-ethinyl estradioL 0.25-35 mg-mcg per tablet Take 1 tablet by mouth daily . No current facility-administered medications on file prior to visit. ALLERGIES/INTOLERANCES Allergies Allergen Reactions Amoxicillin Omnicef [Cefdinir] Penicillins STATES CANNOT TAKE ANY CILLINS Septra [Sulfamethoxazole-Trimethoprim] OBJECTIVE BP 114/78 Pulse 99 Temp 97.3 F (36.3 C) (Temporal) Resp 16 SpO2 97% Physical Exam Vitals and nursing note reviewed. Constitutional: Appearance: Normal appearance. HENT: Head: Normocephalic and atraumatic. Nose: Nose normal. Mouth/Throat: Mouth: Mucous membranes are moist. Pharynx: Oropharynx is clear. Cardiovascular: Rate and Rhythm: Normal rate and regular rhythm. Pulses: Normal pulses. Heart sounds: Normal heart sounds. Pulmonary: Effort: Pulmonary effort is normal. No respiratory distress. Breath sounds: Normal breath sounds. No stridor. No wheezing, rhonchi or rales. Chest: Chest wall: No tenderness. Musculoskeletal: General: Normal range of motion. Cervical back: Normal range of motion and neck supple. Skin: General: Skin is warm. Capillary Refill: Capillary refill takes less than 2 seconds. Findings: Rash present. Rash is vesicular. Rash is not crusting, nodular, purpuric, pustular, scaling or urticarial. Comments: Few scattered areas of redness and blistering. No swelling or involvement of surrounding tissue. No drainage or open areas Neurological: General: No focal deficit present. Mental Status: She is alert and oriented to person, place, and time. Psychiatric: Mood and Affect: Mood normal. PROCEDURE Procedures Results No results found for this or any previous visit (from the past 168 hour(s)). ASSESSMENT/PLAN (expressed as patient instructions): 1. Poison christiana dexamethasone (DECADRON) injection 10 mg No follow-ups on file. MDM Section Continue with cortisone cream Recommend Calamine and soak in diluted apple cider vinegar. Given dexamethasone in the office today for this mild poison christiana rash ORDERS PLACED THIS VISIT No orders of the defined types were placed in this encounter. MEDICATION LIST AT END OF VISIT Current Outpatient Medications Medication Sig Dispense Refill aspirin 81 MG EC tablet Take 81 mg by mouth 2 (two) times a day . azithromycin (ZITHROMAX) 250 MG tablet Take 2 tablets orally today then 1 tablet once a day for 4 days . (Patient not taking: Reported on 11/15/2021 .) 6 tablet 0 vjhldevfjmrsyjn-fpsmcupXLUAejfj-BZ 2-30-10 mg/5 mL syrup Take 10 mL by mouth 4 (four) times a day as needed . (Patient not taking: No sig reported) 120 mL 0 fluticasone propionate (FLONASE) 50 mcg/actuation nasal spray Instill 2 (two) sprays into each nostril daily for 14 days . 16 g 0 methylPREDNISolone (MEDROL DOSEPACK) 4 mg tablet follow package directions . (Patient not taking: No sig reported) 21 tablet 0 norgestimate-ethinyl estradioL 0.25-35 mg-mcg per tablet Take 1 tablet by mouth daily . Current Facility-Administered Medications Medication Dose Route Frequency Provider Last Rate Last Admin dexamethasone (DECADRON) injection 10 mg 10 mg Intravenous Once Marlys Winter CNP documented in this [id number] History of Present illness Narrative* Marlys Winter CNP - 11/01/2021 10:29 AM EDT PATIENT NAME: Anum Cloud [facility] [address] [facility] [place] [place] [address] : 2000 DATE OF VISIT: 11/01/2021 #: [id number] PROVIDER: Marlys Winter CNP Chief Complaint Patient presents with Otalgia Right ear pain, started yesterday, drainage is yellow/brown, also runny nose SUBJECTIVE 20 y.o. female presents Otalgia (Right ear pain, started yesterday, drainage is yellow/brown, also runny nose) Anum, 20yo female with a past medical history for chronic OM, PE tube placement presents with right ear pain and drainage She was last treated for OM 2-3 months ago. She has ofloxacin at home and started this yesterday. She typically requires oral antibiotics as well Otalgia There is pain in the right ear. This is a recurrent problem. The current episode started yesterday.The problem occurs constantly. There has been no fever. The pain is at a severity of 5/10. The painis moderate. Associated symptoms include ear discharge. Pertinent negatives include no abdominal pain, coughing, diarrhea, headaches, hearing loss, neck pain, rash, rhinorrhea, sore throat or vomiting. She has tried acetaminophen, NSAIDs and antibiotics for the symptoms. The treatment provided mildrelief. Her past medical history is significant for a chronic ear infection and a tympanostomy tube. MEDICAL ISSUES No past medical history on file. Patient Active Problem List Diagnosis COVID-19 SOCIAL HISTORY Social History Socioeconomic History Marital status: Single Tobacco Use Smoking status: Never Smoker Smokeless tobacco: Never Used Vaping Use Vaping Use: Never used FAMILY HISTORY Family History Adopted: Yes REVIEW OF SYSTEMS Review of Systems Constitutional: Negative. Negative for activity change, appetite change, fatigue and fever. HENT: Positive for ear discharge and ear pain. Negative for congestion, hearing loss, postnasal drip, rhinorrhea, sinus pressure, sinus pain, sneezing, sore throat and trouble swallowing. Eyes: Negative. Negative for pain, discharge, redness and itching. Respiratory: Negative. Negative for cough, chest tightness, shortness of breath, wheezing and stridor. Cardiovascular: Negative. Gastrointestinal: Negative. Negative for abdominal pain, constipation, diarrhea, nausea and vomiting. Endocrine: Negative. Genitourinary: Negative. Negative for decreased urine volume, difficulty urinating, flank pain, frequency, hematuria and urgency. Musculoskeletal: Negative. Negative for arthralgias, back pain, myalgias and neck pain. Skin: Negative. Negative for color change, rash and wound. Allergic/Immunologic: Negative. Negative for environmental allergies, food allergies and immunocompromised state. Neurological: Negative. Negative for dizziness, light-headedness and headaches. Hematological: Negative. Psychiatric/Behavioral: Negative. All other systems reviewed and are negative. MEDICATIONS PRIOR TO VISIT Current Outpatient Medications on File Prior to Visit Medication Sig Dispense Refill norgestimate-ethinyl estradioL 0.25-35 mg-mcg per tablet Take 1 tablet by mouth daily . aspirin 81 MG EC tablet Take 81 mg by mouth 2 (two) times a day . azithromycin (ZITHROMAX) 250 MG tablet Take 2 tablets orally today then 1 tablet once a day for thefollowing 4 days . (Patient not taking: Reported on 11/01/2021 .) 6 tablet 0 wixgwivrotrrydg-sapfkxnEFAXgytn-JX 2-30-10 mg/5 mL syrup Take 10 mL by mouth 4 (four) times a day as needed . (Patient not taking: No sig reported) 120 mL 0 fluticasone propionate (FLONASE) 50 mcg/actuation nasal spray Instill 2 (two) sprays into each nostril daily for 14 days . 16 g 0 methylPREDNISolone (MEDROL DOSEPACK) 4 mg tablet follow package directions . (Patient not taking: No sig reported) 21 tablet 0 No current facility-administered medications on file prior to visit. ALLERGIES/INTOLERANCES Allergies Allergen Reactions Amoxicillin Omnicef [Cefdinir] Penicillins STATES CANNOT TAKE ANY CILLINS Septra [Sulfamethoxazole-Trimethoprim] OBJECTIVE BP 106/73 (BP Location: Right arm, Patient Position: Sitting, BP Cuff Size: X- large Adult) Pulse 77 Temp 98 F (36.7 C) Resp 16 SpO2 97% Physical Exam Vitals and nursing note reviewed. Constitutional: Appearance: Normal appearance. HENT: Head: Normocephalic and atraumatic. Right Ear: Drainage and tenderness present. No mastoid tenderness. A PE tube is present. Nose: Nose normal. Mouth/Throat: Mouth: Mucous membranes are moist. Pharynx: Oropharynx is clear. Eyes: Conjunctiva/sclera: Conjunctivae normal. Cardiovascular: Rate and Rhythm: Normal rate and regular rhythm. Pulses: Normal pulses. Heart sounds: Normal heart sounds. Pulmonary: Effort: Pulmonary effort is normal. Breath sounds: Normal breath sounds. Musculoskeletal: General: Normal range of motion. Cervical back: Normal range of motion and neck supple. Skin: General: Skin is warm. Capillary Refill: Capillary refill takes less than 2 seconds. Neurological: General: No focal deficit present. Mental Status: She is alert and oriented to person, place, and time. Psychiatric: Mood and Affect: Mood normal. PROCEDURE Procedures Results No results found for this or any previous visit (from the past 168 hour(s)). ASSESSMENT/PLAN (expressed as patient instructions): No diagnosis found. No follow-ups on file. MDM Section ORDERS PLACED THIS VISIT No orders of the defined types were placed in this encounter. MEDICATION LIST AT END OF VISIT Current Outpatient Medications Medication Sig Dispense Refill norgestimate-ethinyl estradioL 0.25-35 mg-mcg per tablet Take 1 tablet by mouth daily . aspirin 81 MG EC tablet Take 81 mg by mouth 2 (two) times a day . azithromycin (ZITHROMAX) 250 MG tablet Take 2 tablets orally today then 1 tablet once a day for thefollowing 4 days . (Patient not taking: Reported on 11/01/2021 .) 6 tablet 0 iatsikfnpimzpmd-opnekuqPDFXzdbs-IS 2-30-10 mg/5 mL syrup Take 10 mL by mouth 4 (four) times a day as needed . (Patient not taking: No sig reported) 120 mL 0 fluticasone propionate (FLONASE) 50 mcg/actuation nasal spray Instill 2 (two) sprays into each nostril daily for 14 days . 16 g 0 methylPREDNISolone (MEDROL DOSEPACK) 4 mg tablet follow package directions . (Patient not taking: No sig reported) 21 tablet 0 No current facility-administered medications for this visit. documented in this [id number] History of Present illness Narrative* Marlys Winter CNP - 09/06/2021 9:47 AM EST PATIENT NAME: Anum Cloud [facility] [address] [facility] [place] [place] [address] : 2000 DATE OF VISIT: 09/06/2021 #: [id number] PROVIDER: Marlys Winter CNP Chief Complaint Patient presents with Cough Nasal Congestion Runny nose, sneezing Covid-19 Screening Started 5 days ago , no exposure not vaccinated took home test last night and was neg. SUBJECTIVE 20 y.o. female presents Cough, Nasal Congestion (Runny nose, sneezing), and Covid-19 Screening (Started 5 days ago , no exposure not vaccinated took home test last night and was neg.) Anum, 20yo female presents with a recent URI, left ear pain and drainage from the left ear. She has a permanent left ear tube and is followed by ENT. She was last seen by them 3 weeks ago for an OM and was given ear drops. She is unsure of the name. She did complete therapy and noted improvement. 3 days ago she developed nasal congestion and a mild cough and noted an increase in pain again. Otalgia There is pain in the left ear. This is a recurrent problem. The current episode started in the past7 days. The problem occurs constantly. The problem has been gradually worsening. There has been no fever. The pain is at a severity of 5/10. Associated symptoms include coughing and ear discharge. Pertinent negatives include no abdominal pain, diarrhea, headaches, rash, sore throat or vomiting. Shehas tried acetaminophen for the symptoms. Her past medical history is significant for a chronic earinfection and a tympanostomy tube. MEDICAL ISSUES History reviewed. No pertinent past medical history. Patient Active Problem List Diagnosis COVID-19 SOCIAL HISTORY Social History Socioeconomic History Marital status: Single Tobacco Use Smoking status: Never Smoker Smokeless tobacco: Never Used Vaping Use Vaping Use: Never used FAMILY HISTORY Family History Adopted: Yes REVIEW OF SYSTEMS Review of Systems Constitutional: Negative. Negative for activity change, appetite change, fatigue and fever. HENT: Positive for congestion, ear discharge, ear pain and sneezing. Negative for facial swelling, postnasal drip, sinus pressure, sinus pain, sore throat, trouble swallowing and voice change. Eyes: Negative. Negative for pain, discharge, redness and itching. Respiratory: Positive for cough. Cardiovascular: Negative. Negative for chest pain, palpitations and leg swelling. Gastrointestinal: Negative. Negative for abdominal pain, diarrhea, nausea and vomiting. Endocrine: Negative. Genitourinary: Negative. Musculoskeletal: Negative. Negative for arthralgias and myalgias. Skin: Negative for rash. Allergic/Immunologic: Negative. Negative for environmental allergies, food allergies and immunocompromised state. Neurological: Negative. Negative for dizziness, light-headedness and headaches. Hematological: Negative. Negative for adenopathy. Psychiatric/Behavioral: Positive for sleep disturbance. All other systems reviewed and are negative. MEDICATIONS PRIOR TO VISIT Current Outpatient Medications on File Prior to Visit Medication Sig Dispense Refill aspirin 81 MG EC tablet Take 81 mg by mouth 2 (two) times a day . azithromycin (Zithromax Z-Silver) 250 MG tablet Take 2 tablets (500 mg) by mouth day 1, then 1 tablet (250 mg) by mouth days 2-5. . (Patient not taking: No sig reported) 6 tablet 0 bthdjrcausijtwn-iiyitndBRUObfet-ZY 2-30-10 mg/5 mL syrup Take 10 mL by mouth 4 (four) times a day as needed . (Patient not taking: Reported on 09/06/2021 .) 120 mL 0 fluticasone propionate (FLONASE) 50 mcg/actuation nasal spray Instill 1 (one) spray into each nostril 2 (two) times a day . (Patient not taking: No sig reported) 16 g 0 methylPREDNISolone (MEDROL DOSEPACK) 4 mg tablet follow package directions . (Patient not taking: No sig reported) 21 tablet 0 norgestimate-ethinyl estradioL 0.25-35 mg-mcg per tablet Take 1 tablet by mouth daily . No current facility-administered medications on file prior to visit. ALLERGIES/INTOLERANCES Allergies Allergen Reactions Amoxicillin Omnicef [Cefdinir] Penicillins STATES CANNOT TAKE ANY CILLINS Septra [Sulfamethoxazole-Trimethoprim] OBJECTIVE There were no vitals taken for this visit. Physical Exam Vitals and nursing note reviewed. Constitutional: General: She is not in acute distress. Appearance: Normal appearance. She is obese. She is not ill-appearing. HENT: Head: Normocephalic and atraumatic. Left Ear: Drainage and tenderness present. No mastoid tenderness. A PE tube is present. Tympanic membrane is erythematous. Nose: Congestion present. No nasal tenderness. Right Turbinates: Enlarged and swollen. Left Turbinates: Enlarged and swollen. Right Sinus: No maxillary sinus tenderness or frontal sinus tenderness. Left Sinus: No maxillary sinus tenderness or frontal sinus tenderness. Mouth/Throat: Mouth: Mucous membranes are moist. Pharynx: Oropharynx is clear. Eyes: Conjunctiva/sclera: Conjunctivae normal. Cardiovascular: Rate and Rhythm: Normal rate and regular rhythm. Pulses: Normal pulses. Heart sounds: Normal heart sounds. No murmur heard. Pulmonary: Effort: Pulmonary effort is normal. No respiratory distress. Breath sounds: Normal breath sounds. No stridor. No wheezing, rhonchi or rales. Chest: Chest wall: No tenderness. Abdominal: General: Abdomen is flat. Palpations: Abdomen is soft. Musculoskeletal: General: Normal range of motion. Cervical back: Normal range of motion and neck supple. Skin: General: Skin is warm. Capillary Refill: Capillary refill takes less than 2 seconds. Neurological: General: No focal deficit present. Mental Status: She is alert and oriented to person, place, and time. Psychiatric: Mood and Affect: Mood normal. PROCEDURE Procedures Results No results found for this or any previous visit (from the past 168 hour(s)). ASSESSMENT/PLAN (expressed as patient instructions): No diagnosis found. No follow-ups on file. MDM Section URI with recurrent left OM May begin ear drops prescribed through ENT for recurrent OM Will add in zithromax May continue with day quil and nyquil as needed for congestion Begin flonase Patient in agreement with plan RTC recommendations are reviewed ORDERS PLACED THIS VISIT No orders of the defined types were placed in this encounter. MEDICATION LIST AT END OF VISIT Current Outpatient Medications Medication Sig Dispense Refill aspirin 81 MG EC tablet Take 81 mg by mouth 2 (two) times a day . azithromycin (Zithromax Z-Silver) 250 MG tablet Take 2 tablets (500 mg) by mouth day 1, then 1 tablet (250 mg) by mouth days 2-5. . (Patient not taking: No sig reported) 6 tablet 0 ivipxwmckcrqpec-ochcuhqBAOWtual-UX 2-30-10 mg/5 mL syrup Take 10 mL by mouth 4 (four) times a day as needed . (Patient not taking: Reported on 09/06/2021 .) 120 mL 0 fluticasone propionate (FLONASE) 50 mcg/actuation nasal spray Instill 1 (one) spray into each nostril 2 (two) times a day . (Patient not taking: No sig reported) 16 g 0 methylPREDNISolone (MEDROL DOSEPACK) 4 mg tablet follow package directions . (Patient not taking: No sig reported) 21 tablet 0 norgestimate-ethinyl estradioL 0.25-35 mg-mcg per tablet Take 1 tablet by mouth daily . No current facility-administered medications for this visit. documented in this [id number] Instructions* Patient Instructions* Alivia Slaughter CNP - 05/17/2021 10:57 AM EDT Educated on breathing exercises and instructed not to wrap ribs due to increased risk of pneumonia.Rest and ice. Medication use and side effects reviewed. F/U PCP in 5-7 days if no improvement. Seekemergent treatment for any trouble breathing, severe, sharp, or uncontrolled pain. Educated to rest, increase fluids, warm salt water gargles, and breathing exercises. Educated on medication use and side effects. Instructed to seek emergent treatment for any new or progressively worsening of symptoms, chest pain, trouble breathing, shortness of breath, uncontrolled fever or pain,or dehydration. documented in this [id number] History of Present illness Narrative* Alivia Slaughter CNP - 05/17/2021 10:52 AM EDT HPI: Presents today for sore throat x 2 days. Right rib pain after playing basketball yesterday andfell on left side, rib pain is worse with coughing and started this morning upon awakening. Also has mid back pain with coughing. Had Covid last month with antibody infusion. No OTC or supportive therapies tried. No known ill contact exposures. No recent antibiotics. No history of asthma. Not immunocompromised. Not a smoker. Review of Systems: Gen: No fever or chills Eyes: No eye problems reported. ENT: Mild nasal drainage. No ear pain. Sore throat. Respiratory: Cough and congestion. No significant trouble breathing or shortness of breath. Cardiovascular: No significant chest pain GI: No significant abdominal pain, vomiting, or diarrhea. Musculoskeletal: See HPI Skin: No reported rashes or skin complaints Neuro: No syncope. No seizures Physical Exam: General: No acute distress. Head: Normocephalic. Eyes: Conjunctivae clear, no drainage . Ears: EAC's clear. Middle ear fluid bilaterally without erythema or bulging. Nose: Nares patent bilaterally. Clear nasal drainage. Nasal turbinates non-erythematous. Orpharyngeal: Oral mucus membranes moist. No erythema, no exudates, no lesions. Neck: Supple and non-tender. No significant anterior cervical, posterior cervical, or sub-mandibular lymph nodes. Chest: Respirations regular and easy. Lungs clear, no rales, no rhonchi, no wheezes. Heart: Regular rate and rhythm. Extremities: Full range of motion. No obvious deformities . Neuro: Alert and oriented. Gait steady. Speech normal. Psych: Mood and affect appropriate. Answers questions appropriately. Skin: Warm and dry. No appreciable rash, lesions, or bruises documented in this [id number] History of Present illness Narrative* Imani Stephens CNP - 05/06/2021 5:37 PM EDT Subjective Patient ID: Anum Cloud is a 20 y.o. female. HPI: 20-year-old female presents urgent care with complaint of 4-day history of illness. Patient reports runny nose and cough. She is getting ready to leave on vacation, would like to be evaluated. Patient has tried DayQuil and NyQuil for couple of days. The following portions of the patient's history were reviewed and updated as appropriate: allergies, current medications, past medical history and problem list. Review of Systems Constitutional: Negative for fatigue and fever. All systems reviewed with pertinent positives and negatives mentioned below. HENT: Positive for postnasal drip and rhinorrhea. Negative for congestion, ear pain, sinus pressure, sinus pain and sore throat. Eyes: Negative for redness and itching. Respiratory: Positive for cough. Negative for shortness of breath. Cardiovascular: Negative for chest pain and palpitations. Gastrointestinal: Negative for abdominal pain, diarrhea, nausea and vomiting. Skin: Negative for rash. Neurological: Negative for dizziness, weakness and headaches. Objective Physical Exam Constitutional: Appearance: Normal appearance. HENT: Head: Normocephalic. Right Ear: Tympanic membrane, ear canal and external ear normal. Left Ear: Tympanic membrane, ear canal and external ear normal. Nose: Nose normal. Mouth/Throat: Mouth: Mucous membranes are moist. Eyes: Conjunctiva/sclera: Conjunctivae normal. Cardiovascular: Rate and Rhythm: Normal rate and regular rhythm. Heart sounds: Normal heart sounds. Pulmonary: Effort: Pulmonary effort is normal. Breath sounds: Normal breath sounds. Abdominal: Tenderness: There is no abdominal tenderness. Musculoskeletal: General: Normal range of motion. Cervical back: Neck supple. Skin: General: Skin is warm and dry. Neurological: General: No focal deficit present. Mental Status: She is alert and oriented to person, place, and time. Psychiatric: Mood and Affect: Mood normal. Behavior: Behavior normal. PROCEDURE Procedures Assessment/Plan: Problem List Items Addressed This Visit None Visit Diagnoses Upper respiratory tract infection, unspecified type - Primary Relevant Medications sghveatlywlfatv-obzxmfeNXUShyqy-SA 2-30-10 mg/5 mL syrup Discussion Notes: Patient history and exam suggest viral URI. Patient is switched to Bromfed-DM andinstructed to stop her current ohro-mvb-jeiabjr cough medication. Patient does not have sinus tenderness on palpation, no fevers to indicate that she has a sinus infection at this time. Return precautions are discussed. Recheck for new or worsening concerns. Patient voices understanding of instructions. documented in this [id number] Instructions* Patient Instructions* Rupinder Segura PA-C - 03/06/2021 12:38 PM EDT Images from the original note were not included. documented in this [id number] History of Present illness Narrative* Rupinder Segura PA-C - 03/06/2021 12:25 PM EDT PATIENT NAME: Anum Cloud [facility] [address] [facility] [address] : 2000 DATE OF VISIT: 03/07/2021 #: [id number] PROVIDER: Rupinder Segura PA-C Chief Complaint Patient presents with Cough Nasal Congestion loss of taste and smell SUBJECTIVE 20 y.o. female presents Cough, Nasal Congestion, and loss of taste and smell HPI Headache, cough, nasal congestion and loss of taste and/or smell all started 3 days ago. Tylenol not helping. Ear pain and diagnosed with ear infection yesterday. Denies shortness of breath or chest pain. Dry cough. Denies Nausea, Vomiting or diarrhea. Denies covid vaccine. Ear is now bleeding. [facility]. No covid test yesterday, Primary Care Provider recommended she get tested today. MEDICAL ISSUES History reviewed. No pertinent past medical history. There is no problem list on file for this patient. SOCIAL HISTORY Social History Socioeconomic History Marital status: Single Spouse name: Not on file Number of children: Not on file Years of education: Not on file Highest education level: Not on file Occupational History Not on file Tobacco Use Smoking status: Never Smoker Smokeless tobacco: Never Used Vaping Use Vaping Use: Never used Substance and Sexual Activity Alcohol use: Not on file Drug use: Not on file Sexual activity: Not on file Other Topics Concern Not on file Social History Narrative Not on file Social Determinants of Health Financial Resource Strain: Difficulty of Paying Living Expenses: Not on file Food Insecurity: Worried About Running Out of Food in the Last Year: Not on file Ran Out of Food in the Last Year: Not on file Transportation Needs: Lack of Transportation (Medical): Not on file Lack of Transportation (Non-Medical): Not on file Physical Activity: Days of Exercise per Week: Not on file Minutes of Exercise per Session: Not on file Stress: Feeling of Stress : Not on file Social Connections: Frequency of Communication with Friends and Family: Not on file Frequency of Social Gatherings with Friends and Family: Not on file Attends L[employer] Services: Not on file Active Member of Clubs or Organizations: Not on file Attends Club or Organization Meetings: Not on file Marital Status: Not on file Housing Stability: Unable to Pay for Housing in the Last Year: Not on file Number of Places Lived in the Last Year: Not on file Unstable Housing in the Last Year: Not on file FAMILY HISTORY History reviewed. No pertinent family history. REVIEW OF SYSTEMS Review of Systems Constitutional: Negative for appetite change, chills and fever. HENT: Positive for congestion and ear pain. Negative for postnasal drip, rhinorrhea, sinus pain, sneezing, sore throat and trouble swallowing. Respiratory: Positive for cough. Negative for shortness of breath and wheezing. Cardiovascular: Negative for chest pain. Gastrointestinal: Negative for abdominal pain, diarrhea, nausea and vomiting. Musculoskeletal: Negative for arthralgias, myalgias and neck pain. Skin: Negative for rash. Neurological: Negative for headaches. All other systems reviewed and are negative. MEDICATIONS PRIOR TO VISIT Current Outpatient Medications on File Prior to Visit Medication Sig Dispense Refill fluticasone propionate (FLONASE) 50 mcg/actuation nasal spray Instill 1 (one) spray into each nostril 2 (two) times a day . 16 g 0 norgestimate-ethinyl estradioL 0.25-35 mg-mcg per tablet Take 1 tablet by mouth daily . ofloxacin (FLOXIN) 0.3 % otic solution Administer 5 (five) drops to the right ear daily for 7 days . 5 mL 0 No current facility-administered medications on file prior to visit. ALLERGIES/INTOLERANCES Allergies Allergen Reactions Amoxicillin Omnicef [Cefdinir] Septra [Sulfamethoxazole-Trimethoprim] OBJECTIVE Pulse (!) 104 Temp 100.3 F (37.9 C) (Infrared) Resp 16 Ht 5' 3 Wt 86.2 kg (190 lb) SpO2 98% BMI 33.66 kg/m Physical Exam Vitals and nursing note reviewed. Constitutional: Appearance: She is well-developed. HENT: Head: Normocephalic and atraumatic. Eyes: Conjunctiva/sclera: Conjunctivae normal. Pupils: Pupils are equal, round, and reactive to light. Pulmonary: Effort: Pulmonary effort is normal. Musculoskeletal: Cervical back: Normal range of motion. Skin: General: Skin is warm and dry. Neurological: Mental Status: She is alert and oriented to person, place, and time. Psychiatric: Behavior: Behavior normal. PROCEDURE Procedures Results Recent Results (from the past 168 hour(s)) COVID-19, Molecular Collection Time: 03/06/21 12:38 PM Specimen: Nasopharyngeal; Swab Result Value Ref Range SARS-CoV-2 Detected (A) Not Detected Internal Control Pass ASSESSMENT/PLAN (expressed as patient instructions): 1. COVID-19 virus infection 2. Encntr for obs for susp expsr to oth biolg agents ruled out COVID-19, Molecular 3. Cough COVID-19, Molecular 4. Loss of taste COVID-19, Molecular No follow-ups on file. MDM Section 10 day isolation advised. Stop using ear drops. Keep ear dry, take nsaids as needed. ORDERS PLACED THIS VISIT Orders Placed This Encounter Procedures COVID-19, Molecular MEDICATION LIST AT END OF VISIT Current Outpatient Medications Medication Sig Dispense Refill fluticasone propionate (FLONASE) 50 mcg/actuation nasal spray Instill 1 (one) spray into each nostril 2 (two) times a day . 16 g 0 norgestimate-ethinyl estradioL 0.25-35 mg-mcg per tablet Take 1 tablet by mouth daily . ofloxacin (FLOXIN) 0.3 % otic solution Administer 5 (five) drops to the right ear daily for 7 days . 5 mL 0 No current facility-administered medications for this visit. [facility] No data available for this section [facility] COVID-19 virus infection- Primary Encntr for obs for susp expsr to oth biolg agents ruled out Cough Loss of taste Disturbances of sensation of smell and taste [facility] Diagnosis Upper respiratory tract infection, unspecified type- Primary [facility]* Diagnosis Rib pain- Primary Unspecified chest pain Upper respiratory tract infection, unspecified type Rib pain Unspecified chest pain [facility]* Diagnosis Recurrent acute suppurative otitis media of right ear without spontaneous rupture of tympanic membrane- Primary [facility]* Diagnosis Right non-suppurative otitis media- Primary Nonsuppurative otitis media, not specified as acute or chronic [facility]* Diagnosis Poison christiana- Primary Contact dermatitis and other eczema due to plants (except food) [facility]* Diagnosis Dermatitis- Primary Contact dermatitis and other eczema, due to unspecified cause [facility]* Diagnosis Right knee pain, unspecified chronicity- Primary Low back pain, unspecified back pain laterality, unspecified chronicity, unspecified whether sciatica present [facility]* Diagnosis Right knee pain, unspecified chronicity Low back pain, unspecified back pain laterality, unspecified chronicity, unspecified whether sciatica present Chronic pain of right knee [facility]* Diagnosis Chronic pain of right knee- Primary [facility]* Diagnosis Chronic pain of right knee- Primary [facility]* Diagnosis Chronic pain of right knee- Primary [facility]* Diagnosis Acute cystitis without hematuria- Primary Acute cystitis documented [facility] Work Phone: Evaluation note No assessment recorded. [facility] Evaluation note* Diagnosis ETD (Eustachian tube dysfunction), right- Primary Obesity (BMI 30-39.9) [facility] Diagnosis Obesity (BMI 30-39.9) [facility] Narrative - Reported* Type Description Date Medical History ADHD Medical History chronic ear infections Surgical History ear tubes x 3 Surgical History tonsillectomy and adenoidectomy Surgical History removed bead from right ear Surgical History wisdom teeth Hospitalization History see above [employer] Other Hospital Discharge instructions* Attachments The following attachments cannot be sent through Care Everywhere. * UTI (Urinary Tract Infection): Female ([place]) [facility] Work Phone: Hospital Discharge instructions No data available for this section [facility] Attachments The following attachments cannot be sent through Care Everywhere. * URI (Upper Respiratory Infection) ([place]) * Otitis Media ([place]) [facility] in [facility]Instructions* Attachments The following attachments cannot be sent through Care Everywhere. * Otitis Media ([place]) [facility]Instructions* Attachments The following attachments cannot be sent through Care Everywhere. * Poison Christiana - [place] ([place]) documented in [facility]Inst[facility]* Attachments The following attachments cannot be sent through Care Everywhere. 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 No data available for this section No Family History Records FoundNo Family History Records Found Reason for Referral Specialty Diagnoses / Procedures Referred By Jenn carnes Referred To Contact Rehabilitation Diagnoses Right knee pain, unspecified chronicity Low back pain, unspecified back pain laterality, unspecified chronicity, unspecified whether sciatica present Dhaval Lock MD [address] [place] [id number] [facility] [address] [place] [address] Referral ID Status Reason Start Date Expiration Date V isits Requested Visits Authorized [id number] Authorized 05/14/2022 05/14/2023 1 1 Additional Source Comments Reason for Visit (unrecogniz ed section and content) Reason Comments Cough Nasal Congestion loss of taste and smell Reason Comments Cough having a cough, runn y nose for 2 days, has alot of drainage, had covid a month ago Reason Comments Sore Throat has had X 2 days rib pain right front rib pain states will need to cough and it hurts so bad to cough. States was playing basketball yesterday and fell onto left side and is not sure if that could be causing it. States the rib pain started this am when woke up. Covid-19 Screening had covid X 1 month ago. Had antibody infusion done at [facility]. Back Pain also has mid back pa in from spine to right side states it is at an angle. Reason Comments Cough Nasal Congestion Runny nose, sneezing Covid-19 Screening Started 5 days ago , no exposure not vaccinated took home test last night and was neg. Reason Comments Otalgia Right ear pain, star jordan yesterday, drainage is yellow/brown, also runny nose Reason Comments Poison Christiana On left arm and hand has had X 4 days. Reason Comments Rash To legs and arms sta [place] also had on her face and it flares up when she eats and she gets really sweaty. Started 2.5 weeks ago. States getting worse Reason Comments Physical Therapy Specialty Diagnoses / Procedures Referred By Jenn t Referred To Contact Rehabilitation Diagnoses Right knee pain, unspecified chronicity Low back pain, unspecified back pain laterality, unspecified chronicity, unspecified whether sciatica present Dhaval Lock MD [address] [place] [id number] [facility] [address] [place] [address] Referral ID Status Reason Start Date Expiration Date V isits Requested Visits Authorized [id number] Authorized 05/14/2022 05/14/2023 1 25 Reason Comments Abdominal Pain Lower abdominal pain and nausea x 2 days, pt denies vomiting or diarrhea Reason Comments Follow-up 1m adipex Reason Onset Date Comments Med Refill 08/24/2023 Care Teams (unrecognized sec tion and content) [employer] 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 Relationship Specialty Start Date End Date No, Physician [facility] PCP - General 03/05/21 [employer] 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 Relationship Specialty Start Date End Date No, Physician [facility] PCP - General 03/05/21 [employer] 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 Relationship Specialty Start Date End Date No, Physician [facility] PCP - General 03/05/21 [employer] 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 Relationship Specialty Start Date End Date No, Physician [facility] PCP - General 03/05/21 [employer] 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 Relationship Specialty Start Date End Date No, Physician [facility] PCP - General 03/05/21 [employer] 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 Relationship Specialty Start Date End Date No, Physician [facility] PCP - General 03/05/21 [employer] 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 Relationship Specialty Start Date End Date No, Physician [facility] PCP - General 03/05/21 [employer] 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 Relationship Specialty Start Date End Date No, Physician [facility] PCP - General 03/05/21 [employer] 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 Relationship Specialty Start Date End Date No, Physician [facility] PCP - General 03/05/21 [employer] 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 Relationship Specialty Start Date End Date No, Physician [facility] PCP - General 03/05/21 [employer] 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 Relationship Specialty Start Date End Date No, Physician [facility] PCP - General 03/05/21 [employer] 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 Relationship Specialty Start Date End Date No, Physician [facility] PCP - General 03/05/21 [employer] 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 Relationship Specialty Start Date End Date Dhaval Marx MD [address] [place] [address] PCP - General Family Medicine 11/07/22 [employer] 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 Relationship Specialty Start Date End Date Dhaval Marx MD [address] [place] [phone] PCP - General Family Medicine 08/05/23 [employer] 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 Relationship Specialty Start Date End Date Dhaval Marx MD [address] [place] [phone] PCP - General Family Medicine 08/05/23 [employer] 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 Relationship Specialty Start Date End Date Dhaval Marx MD [address] [place] [phone] PCP - General Family Medicine 08/05/23 INFORMATION SOURCE (unrecogn ized section and content) DATE CREATED AUTHOR 08/11/2021 [employer] DATE CREATED AUTHOR AUTHOR'S ORGANIZ ATION 03/19/2022 [facility] DATE CREATED AUTHOR AUTHOR'S ORGANIZ ATION 07/04/2022 [facility] DATE CREATED AUTHOR AUTHOR'S ORGANIZ ATION 08/06/2022 [facility] dical Specialist DATE CREATED AUTHOR AUTHOR'S ORGANIZ ATION 04/29/2023 [facility] DATE CREATED AUTHOR AUTHOR'S ORGANIZ ATION 03/29/2024 [facility] dical Specialists EPIC Scheduled Active and Recently Administ ered Medications (unrecognized section and content) Medication Order 11/06/2022 11/07/2022 11/08/2022 cephALEXin (KEFLEX) capsule 500 mg (COMPLETED) 500 mg, Oral, ONCE, 1 dose, On 11/08/22 at 0215 0142 (Given - Provid er: Yoana Glasgow, BETHANY) hydroCODone-acetaminophen (NORCO) 5-325 MG per tablet 1 tablet (COMPLETED) 1 tablet, Oral, ONCE, 1 dose, On 11/08/22 at 0015, Maximum dose of acetaminophen is 4000 mg from all sources in 24 hours. 2348 (Given - Provider: Yoana Glasgow, BETHANY) FOR RECORDS PERTAINING TO PATIENTS WHO ARE OR HAVE BEEN ENROLLED IN A CHEMICAL DEPENDENCY/SUBSTANCEABUSE PROGRAM, SOME INFORMATION MAY BE OMITTED. This clinical summary was aggregated from multiple sources. Caution should be exercised in using it in the provision of clinical care. This summary normalizes information from multiple sources, and as a consequence, information in this document may materially change the coding, format and clinical context of patient data. In addition, data may be omitted in some cases. CLINICAL DECISIONS SHOULD BE BASED ON THE PRIMARY CLINICAL RECORDS. [employer] provides no warranty or guarantee of the accuracy or completeness of information in this document.
[2024-03-29 14:23] LABS: Internal Control Within Normal Limits; SARS-CoV-2 Ag NEGATIVE (NEGATIVE)
== END 2024-03-29 13:57 | disposition home or self-care (01) ==
LOC: LAB 13:57
PROVIDERS: PCP Family Medicine; Visit Provider Family Medicine
DX: Z20.822 Contact with and (suspected) exposure to COVID-19 (principal)
CPT/HCPCS: 87811

== ENCOUNTER 2024-06-15 08:44 | Outpatient (OUT) | payer OTHER, BC, SELFPAY ==
[2024-06-15 10:55] LABS: Bilirubin Urine NEGATIVE (NEGATIVE); Blood Urine NEGATIVE (NEGATIVE); Clarity Urine CLEAR (CLEAR); Color Urine YELLOW (YELLOW); Glucose Urine UA NEGATIVE (NEGATIVE); Ketones Urine NEGATIVE (NEGATIVE); Leukocyte Esterase Urine NEGATIVE (NEGATIVE); Nitrite Urine NEGATIVE (NEGATIVE); Protein Urine NEGATIVE (NEG/TRACE); Urobilinogen Urine 0.2 EU/dL (0.2-1.0)
[2024-06-15 11:12] LABS: Urine Microscopic Indicated NO
== END 2024-06-15 08:45 | disposition home or self-care (01) ==
PROVIDERS: PCP Family Medicine; Visit Provider Family Medicine
DX: R30.0 Dysuria (principal)
CPT/HCPCS: 81003; 87086